=== PATIENT | female | born 1990 ===

== ENCOUNTER 2016-09-20 14:26 | Emergency (ER) | payer OTHER ==
--- NOTE | 2016-09-20 17:22 | DIAGNOSTIC IMAGING REPORT ---
PROCEDURE: CT ABD/PELVIS WITH CONTRAST CLINICAL INDICATION: Mid abdominal pain, initial encounter TECHNIQUE: 95 ml of Isovue 300 were injected intravenously and axial images were obtained of the entire abdomen and pelvis with sagittal and coronal reformations. COMPARISON: None. FINDINGS: ABDOMEN: Lung base are clear. Normal heart size. Multiple gallstones but no inflammatory changes. Minor right hepatic lobe ductal dilation . Liver, pancreas, spleen, adrenal glands, kidneys and abdominal aorta are normal. Normal appendix. Nonspecific bowel gas pattern. PELVIS: 2 cm involuting left ovarian cyst with minimal free fluid. Uterus and bladder are normal. Bones are unremarkable pill IMPRESSION: 1. Cholelithiasis 2. 2 cm involuting left ovarian cyst with minimal free fluid 3. Results discussed with Dr. Milligan All CT scans at this facility use dose modulation, iterative reconstruction, and/or weight-based dosing when appropriate to reduce radiation dose to as low as reasonably achievable.
--- NOTE | 2016-09-20 19:03 | ED NURSING NOTES ---
Clinical Report - Nurses [facility] [address] [place] [address] 09/20/2016 14:28 Patient: JAY KNIGHT TRIAGE Triage time 14:33 Sep 20 2016. Acuity: LEVEL 3. Chief Complaint: CHEST PAIN. 14:37 09/20/16. Alert. No acute distress. SEPSIS SCREEN: Sepsis Screen. Negative (no infection suspected/documented). --14:37 Melody Martinez 14:37 09/20/16. BP: 149/97. HR: 93. RR: 20. O2 saturation: 100%. Temp: 98.4 F. Pain level now 05/20. --14:37 Melody Martinez. Weight: 68 kg stated. Height/Length: 62 inches Per Patient. BMI: 27.4. --14:35 Melody Martinez. Medications None. --14:35 Melody Martinez. Medication/allergy information source: the patient. --14:37 Melody Martinez. Allergies None. --14:35 Melody Martinez. History Arrived by private vehicle. Historian: patient. Accompanied by family and sister. No primary care physician. Onset. (This morning). ( Patient reports pain in the center of her chest and upper abd that started this AM. Reports that she has vomited 4 times today. Denies diarrhea, has been constipated for "a few" days. Nothing makes the pain better. Pt reports that the only heart/stomach issue she has had before was food poisoning.). She has had difficulty breathing, nausea and vomiting. No sweating episodes, fever or cough. 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 PAST MEDICAL HX: Immunizations: status is unknown. Denies current . SOCIAL HX: Never smoker. Occasional alcohol use. History of drug use: marijuana. FALL RISK ASSESSMENT: Fall risk assessment completed. No fall risk identified. NUTRITIONAL RISK ASSESSMENT: The nutritional risk assessment revealed no deficiencies. FUNCTIONAL ASSESSMENT: Functional assessment: no impairments noted. LEARNING NEEDS ASSESSMENT: The learning needs assessment revealed no barriers. SKIN INTEGRITY ASSESSMENT: Skin integrity risk assessment completed. No skin integrity risk identified. --14:37 Melody Martinez. Assessment The patient states feels the same. --14:37 Melody Martinez. Interventions ID band on patient. --14:37 Melody Martinez. PHYSICAL ASSESSMENT 14:38 09/20/16. Ambulatory to room. Patient gowned. GENERAL / NEURO / PSYCH: Alert. Oriented X 4. Appears in no acute distress. HEENT: Mucous membranes are pink. RESPIRATORY: Respirations not labored. Chest wall tenderness. CVS: Cardiac rhythm: sinus tachycardia. Pulses within normal limits. Capillary refill less than 2 seconds. GI / : Abdomen soft. Abdominal tenderness in the epigastric area. EXTREMITIES: No lower extremity edema. SKIN: Skin is warm and dry. Normal skin turgor. Skin is non-tender. --14:38 Melody Martinez. NURSING PROGRESS NOTES 14:38 09/20/16. The plan of care for this patient has been created. front desk monitor, pulse oximeter and NIBP monitor placed on patient; front desk monitor- Lead II and V5; monitor alarms on. Patient gowned. Head of bed elevated. Reassurance given. Two patient identifiers checked. Call light placed in reach. Side rails up x 1. Bed placed in lowest position. Brakes of bed on. Patient ready for evaluation- chart flagged and ED physician and PA notified. --14:38 Melody Martinez 14:42 09/20/2016 One (1) unsuccessful IV access attempt including the right forearm. Applied pressure dressing. --14:52 Melody Martinez 14:59 09/20/2016 Site #1 started via IV in the right hand with an 22g angiocath, with aseptic technique and good blood return; one attempt. Saline lock flushed with 10 mL saline (Unable to draw blood.). --15:04 Azeb Sherman R.N. 15:05 09/20/2016 Zofran (Ondansetron HCl) IVP 4 mg given over 1 minute(s) via site #1. Allergies verified and confirmed 5 rights. IV patency established. IV site checked: no pain, redness, or swelling. IV flushed thoroughly pre- and post-medication administration. IVP given by RN. --15:05 Melody Martinez 15:09/20/2016 Started bag #1 1000 mL IV Fluids IV NS (Saline); at 1000 mL/hr over 1 hour(s) via site #1 via IV pump. Allergies verified and confirmed 5 rights. IV patency established. IV site checked: no pain, redness, or swelling. IV flushed thoroughly pre- and post-medication administration. --15:09 Melody Martinez 15:09/20/2016 GI COCKTAIL RED (Magnesium-Aluminum) PO Oral Suspension 35 mL given. Allergies verified and confirmed 5 rights. --15:26 Melody Martinez 15:09/20/16. ( Lab in room to draw blood.). --15:22 Melody Martinez 15:30 09/20/16. ( Pt ambulated to bathroom, tolerated well.). --15:30 Melody Martinez 15:33 09/20/16. front desk monitor, pulse oximeter and NIBP monitor placed on patient; front desk monitor- Lead II and V5; monitor alarms on. Patient ID band checked for patient name and birthdate: patient confirmed. Instructions provided to collect clean catch urine and patient verbalized understanding. Clean catch urine collected with return of yellow-colored clear urine; sample sent to lab. Specimen labeled in the presence of the patient. --15:33 Melody Martinez 15:33 09/20/16. BP: 154/91. HR: 111. RR: 22. O2 saturation: 97%. Pain level now: 05/20. --15:35 Melody Martinez 15:36 09/20/2016 Demerol (Meperidine HCl) IVP 50 mg given over 1 minute(s) via site #1. Allergies verified and confirmed 5 rights. IV patency established. IV site checked: no pain, redness, or swelling. IV flushed thoroughly pre- and post-medication administration. IVP given by RN. --15:36 Melody Martinez 16:13 09/20/16. Pain level now 01/18. --16:13 Melody Martinez 16:13 09/20/16. Reassessment after medication administered. She is resting quietly. Overall patient status is improved- she states feels better. --16:13 Melody Martinez Patient transported to radiology by stretcher with tech. (16:36 Sep 20 2016). --16:43 Doritaann mariemaritaMelody 16:59 09/20/16. BP: 148/95. HR: 91. RR: 20. O2 saturation: 100% on room air. Pain level now: 03/20. --16:59 Melody Martinez 16:15 09/20/2016 IV Fluids IV NS Discontinued: bag #1 infused. Total amount infused: 1000 mL. --17:00 Melody Martinez 17:04 09/20/16. Care transferred and report given (BRIEN Bowie). --17:04 Melody Martinez 17:36 09/20/2016 Toradol IVP 30 mg given over 1 minute(s) via site #1. Allergies verified and confirmed 5 rights. IV patency established. IV site checked: no pain, redness, or swelling. IV flushed thoroughly pre- and post-medication administration. IVP given by RN. --17:41 Azeb Sherman R.N. 17:49 09/20/16. BP: 140/74. HR: 94. RR: 13. O2 saturation: 99%. Pain level now: 03/20. --17:50 Azeb Sherman R.N. 19:20 09/20/2016 Site #1 removed upon discharge. Catheter intact. Bandaid applied. --20:30 Azeb Sherman R.N. DISPOSITION / DISCHARGE 19:20. Condition at departure: improved. No learning barriers present. Reviewed medication(s) side effects, precautions, dosing and course information. Prescription(s) given to the patient. Patient verbalized understanding. Written instructions provided in Turkish. The patient was discharged home and accompanied by spouse. She left the Emergency Department ambulatory and via private vehicle. Spouse driving. Medication list reviewed and validated. --20:31 Azeb Sherman R.N. 19:19 09/20/16. BP: 136/72. HR: 88. RR: 20. O2 saturation: 98%. Temp: deferred. Pain level now: 11/18. 17:49 09/20/16. BP: 140/74. HR: 94. RR: 13. O2 saturation: 99%. Pain level now: 03/20. 16:59 09/20/16. BP: 148/95. HR: 91. RR: 20. O2 saturation: 100% on room air. Pain level now: 03/20. 16:11 09/20/16. Pain level now 01/18. 15:33 09/20/16. BP: 154/91. HR: 111. RR: 22. O2 saturation: 97%. Pain level now: 05/20. 14:33 09/20/16. BP: 149/97. HR: 93. RR: 20. O2 saturation: 100%. Temp: 98.4 F. Pain level now 05/20. --20:31 Azeb Sherman R.N. Locked/Released at 09/20/2016 20:34 by Azeb Sherman R.N.
--- NOTE | 2016-09-20 19:03 | ED ORDER SUMMARY ---
..... Patient: JAY KNIGHT OrderSheet [facility] VisitID: [id number] [address] [place] [address] 25y, F Registration Date/Time: 09/20/2016 ORDER SHEET Weight: 68.0 kg (stated) Allergies: None GENERAL ORDERS: CBC w Diff Urgent (15:02 09/20/2016 Lonnie Gillis) (Ack 15:13 LTapper) (15:26 ASchmuck) CMP Urgent (15:09/20/2016 Lonnie Gillis) (Ack 15:13 LTapper) (15:26 ASchmuck) UA-Culture if indicated Urgent (15:09/20/2016 Lonnie Gillis) (Ack 15:13 LTapper) (15:36 ASchmuck) Urine Urgent (15:09/20/2016 Lonnie Gillis) (Ack 15:13 LTapper) (15:36 ASchmuck) Amylase Urgent (15:02 09/20/2016 Lonnie Gillis) (Ack 15:13 LTapper) (15:26 ASchmuck) Lipase Urgent (15:02 09/20/2016 Lonnie Gillis) (Ack 15:13 LTapper) (15:26 ASchmuck) CT Abd/Pel w Cont (No) (11/0.8) Urgent (16:17 09/20/2016 Lonnie Gillis) (Ack 16:22 LTapper) (17:00 ASchmuck) US Abdomen Limited (Yes) Urgent (17:27 09/20/2016 Lonnie Gillis) (Ack 17:32 LTapper) (20:30 SRoberts R.N.) MEDICATION ORDERS: GI Cocktail RED PO 35 mL with Lidocaine Viscous Mouth/Throat 10 mL, Diphenhydramine Oral 10 mL, Maalox Plus Oral 15 mL (NOW) (15:02 09/20/2016 Lonnie Gillis) (Ack 15:05 ASchmuck) (15:26 ASchmuck) IV FLUIDS: IV NS : initial bolus none -, then 1000 mL/hr for X1 (NOW) (15:09/20/2016 Lonnie Gillis) (Ack 15:05 ASchmuck) (15:09 ASchmuck) Zofran IV 4 mg (NOW) (15:02 09/20/2016 Lonnie Gillis) (15:05 ASchmuck) Demerol IV 50 mg (HIGH ALERT MEDICATION, NOW) (15:29 09/20/2016 Lonnie Gillis) (15:36 ASchmuck) Toradol IV 30 mg (NOW) (17:27 09/20/2016 Lonnie Gillis) (Ack 17:31 SRoberts R.N.) (17:41 SRoberts R.N.) ORDER SHEET NOTES: [Electronically signed by Bc Milligan Dr. (19:09 09/20/2016)] [Electronically signed by Azeb Sherman R.N. (20:34 09/20/2016)] [Electronically locked/signed by Azeb Sherman R.N. (20:34 09/20/2016)]
--- NOTE | 2016-09-20 19:03 | ED NURSING NOTES ---
Clinical Report - Nurses [facility] [address] [place] [address] 09/20/2016 14:28 Patient: JAY KNIGHT TRIAGE Triage time 14:33 Sep 20 2016. Acuity: LEVEL 3. Chief Complaint: CHEST PAIN. 14:37 09/20/16. Alert. No acute distress. SEPSIS SCREEN: Sepsis Screen. Negative (no infection suspected/documented). --14:37 Melody Martinez 14:37 09/20/16. BP: 149/97. HR: 93. RR: 20. O2 saturation: 100%. Temp: 98.4 F. Pain level now 05/20. --14:37 Melody Martinez. Weight: 68 kg stated. Height/Length: 62 inches Per Patient. BMI: 27.4. --14:35 Melody Martinez. Medications None. --14:35 Melody Martinez. Medication/allergy information source: the patient. --14:37 Melody Martinez. Allergies None. --14:35 Melody Martinez. History Arrived by private vehicle. Historian: patient. Accompanied by family and sister. No primary care physician. Onset. (This morning). ( Patient reports pain in the center of her chest and upper abd that started this AM. Reports that she has vomited 4 times today. Denies diarrhea, has been constipated for "a few" days. Nothing makes the pain better. Pt reports that the only heart/stomach issue she has had before was food poisoning.). She has had difficulty breathing, nausea and vomiting. No sweating episodes, fever or cough. 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 PAST MEDICAL HX: Immunizations: status is unknown. Denies current . SOCIAL HX: Never smoker. Occasional alcohol use. History of drug use: marijuana. FALL RISK ASSESSMENT: Fall risk assessment completed. No fall risk identified. NUTRITIONAL RISK ASSESSMENT: The nutritional risk assessment revealed no deficiencies. FUNCTIONAL ASSESSMENT: Functional assessment: no impairments noted. LEARNING NEEDS ASSESSMENT: The learning needs assessment revealed no barriers. SKIN INTEGRITY ASSESSMENT: Skin integrity risk assessment completed. No skin integrity risk identified. --14:37 Melody Martinez. Assessment The patient states feels the same. --14:37 Melody Martinez. Interventions ID band on patient. --14:37 Melody Martinez. PHYSICAL ASSESSMENT 14:38 09/20/16. Ambulatory to room. Patient gowned. GENERAL / NEURO / PSYCH: Alert. Oriented X 4. Appears in no acute distress. HEENT: Mucous membranes are pink. RESPIRATORY: Respirations not labored. Chest wall tenderness. CVS: Cardiac rhythm: sinus tachycardia. Pulses within normal limits. Capillary refill less than 2 seconds. GI / : Abdomen soft. Abdominal tenderness in the epigastric area. EXTREMITIES: No lower extremity edema. SKIN: Skin is warm and dry. Normal skin turgor. Skin is non-tender. --14:38 Melody Martinez. NURSING PROGRESS NOTES 14:38 09/20/16. The plan of care for this patient has been created. awake overnight monitor, pulse oximeter and NIBP monitor placed on patient; campus monitor- Lead II and V5; monitor alarms on. Patient gowned. Head of bed elevated. Reassurance given. Two patient identifiers checked. Call light placed in reach. Side rails up x 1. Bed placed in lowest position. Brakes of bed on. Patient ready for evaluation- chart flagged and ED physician and PA notified. --14:38 Melody Martinez 14:42 09/20/2016 One (1) unsuccessful IV access attempt including the right forearm. Applied pressure dressing. --14:52 Melody Martinez 14:59 09/20/2016 Site #1 started via IV in the right hand with an 22g angiocath, with aseptic technique and good blood return; one attempt. Saline lock flushed with 10 mL saline (Unable to draw blood.). --15:04 Azeb Sherman R.N. 15:05 09/20/2016 Zofran (Ondansetron HCl) IVP 4 mg given over 1 minute(s) via site #1. Allergies verified and confirmed 5 rights. IV patency established. IV site checked: no pain, redness, or swelling. IV flushed thoroughly pre- and post-medication administration. IVP given by RN. --15:05 Melody Martinez 15:09/20/2016 Started bag #1 1000 mL IV Fluids IV NS (Saline); at 1000 mL/hr over 1 hour(s) via site #1 via IV pump. Allergies verified and confirmed 5 rights. IV patency established. IV site checked: no pain, redness, or swelling. IV flushed thoroughly pre- and post-medication administration. --15:09 Melody Martinez 15:09/20/2016 GI COCKTAIL RED (Magnesium-Aluminum) PO Oral Suspension 35 mL given. Allergies verified and confirmed 5 rights. --15:26 Melody Martinez 15:09/20/16. ( Lab in room to draw blood.). --15:22 Melody Martinez 15:30 09/20/16. ( Pt ambulated to bathroom, tolerated well.). --15:30 Melody Martinez 15:33 09/20/16. awake overnight monitor, pulse oximeter and NIBP monitor placed on patient; campus monitor- Lead II and V5; monitor alarms on. Patient ID band checked for patient name and birthdate: patient confirmed. Instructions provided to collect clean catch urine and patient verbalized understanding. Clean catch urine collected with return of yellow-colored clear urine; sample sent to lab. Specimen labeled in the presence of the patient. --15:33 Melody Martinez 15:33 09/20/16. BP: 154/91. HR: 111. RR: 22. O2 saturation: 97%. Pain level now: 05/20. --15:35 Melody Martinez 15:36 09/20/2016 Demerol (Meperidine HCl) IVP 50 mg given over 1 minute(s) via site #1. Allergies verified and confirmed 5 rights. IV patency established. IV site checked: no pain, redness, or swelling. IV flushed thoroughly pre- and post-medication administration. IVP given by RN. --15:36 Melody Martinez 16:13 09/20/16. Pain level now 01/18. --16:13 Melody Martinez 16:13 09/20/16. Reassessment after medication administered. She is resting quietly. Overall patient status is improved- she states feels better. --16:13 Melody Martinez Patient transported to radiology by stretcher with tech. (16:36 Sep 20 2016). --16:43 Doritaann mariemaritaMelody 16:59 09/20/16. BP: 148/95. HR: 91. RR: 20. O2 saturation: 100% on room air. Pain level now: 03/20. --16:59 Melody Martinez 16:15 09/20/2016 IV Fluids IV NS Discontinued: bag #1 infused. Total amount infused: 1000 mL. --17:00 Melody Martinez 17:04 09/20/16. Care transferred and report given (BRIEN Bowie). --17:04 Melody Martinez 17:36 09/20/2016 Toradol IVP 30 mg given over 1 minute(s) via site #1. Allergies verified and confirmed 5 rights. IV patency established. IV site checked: no pain, redness, or swelling. IV flushed thoroughly pre- and post-medication administration. IVP given by RN. --17:41 Azeb Sherman R.N. 17:49 09/20/16. BP: 140/74. HR: 94. RR: 13. O2 saturation: 99%. Pain level now: 03/20. --17:50 Azeb Sherman R.N. 19:20 09/20/2016 Site #1 removed upon discharge. Catheter intact. Bandaid applied. --20:30 Azeb Sherman R.N. DISPOSITION / DISCHARGE 19:20. Condition at departure: improved. No learning barriers present. Reviewed medication(s) side effects, precautions, dosing and course information. Prescription(s) given to the patient. Patient verbalized understanding. Written instructions provided in Syrian. The patient was discharged home and accompanied by spouse. She left the Emergency Department ambulatory and via private vehicle. Spouse driving. Medication list reviewed and validated. --20:31 Azeb Sherman R.N. 19:19 09/20/16. BP: 136/72. HR: 88. RR: 20. O2 saturation: 98%. Temp: deferred. Pain level now: 11/18. 17:49 09/20/16. BP: 140/74. HR: 94. RR: 13. O2 saturation: 99%. Pain level now: 03/20. 16:59 09/20/16. BP: 148/95. HR: 91. RR: 20. O2 saturation: 100% on room air. Pain level now: 03/20. 16:11 09/20/16. Pain level now 01/18. 15:33 09/20/16. BP: 154/91. HR: 111. RR: 22. O2 saturation: 97%. Pain level now: 05/20. 14:33 09/20/16. BP: 149/97. HR: 93. RR: 20. O2 saturation: 100%. Temp: 98.4 F. Pain level now 05/20. --20:31 Azeb Sherman R.N. Locked/Released at 09/20/2016 20:34 by Azeb Sherman R.N.
--- NOTE | 2016-09-20 19:03 | ED CLINICAL REPORT ---
Clinical Report - Physicians/Mid Levels [facility] [address] [place] [address] 09/20/2016 14:28 Patient: JAY KNIGHT Time Seen: 14:36; initial patient contact. Arrived- By private vehicle. Historian- patient. HISTORY OF PRESENT ILLNESS Chief Complaint: ABDOMINAL PAIN. This started today and is still present. At its maximum, severity described as moderate. When seen in the E.D., severity described as moderate. Modifying factors. Not worsened by anything. Not relieved by anything. It is described as "pain". No radiation. It is described as located in the epigastric area and in the upper abdomen. The patient has had nausea, loss of appetite and vomiting. No diarrhea. Similar symptoms previously: None. Recent medical care: Not recently seen/assessed. REVIEW OF SYSTEMS No constipation, pain with urination, urinary frequency, fever or chills. All systems otherwise negative, except as recorded above. PAST HISTORY Negative. Surgeries: No history of previous surgery. SOCIAL HISTORY Never smoker. History of drug use: marijuana. ADDITIONAL NOTES The nursing notes have been reviewed with agreement regarding the chief complaint, PMH and patient medications and allergies. PHYSICAL EXAM Vital Signs: 09/20/2016 14:37 BP: 149/97. HR: 93. RR: 20. O2 saturation: 100%. Temp: 98.4 F. Have been reviewed. Hypertensive. Heart rate normal. Respiratory rate normal. Temperature normal. Oxygen saturation normal. Appearance: Alert. Oriented X3. Appears to be in pain. Eyes: Eyes normal inspection. No scleral icterus. ENT: Dry mucous membranes present. CVS: Normal heart rate and rhythm. Heart sounds normal. Respiratory: No respiratory distress. Breath sounds normal. Abdomen: Soft. Moderate tenderness in the upper abdomen and epigastric area with guarding present. No rebound tenderness or Randle's sign present. Bowel sounds normal. No mass. Back: Normal inspection. No CVA tenderness. Skin: Skin warm and dry. Normal skin color. No rash. Neuro: Oriented X 3. LABS, X-RAYS, AND EKG Abdominal CT: 1. Cholelithiasis 2. 2 cm involuting left ovarian cyst with minimal free fluid. Study type: abdomen and pelvis. Abdominal CT performed with IV contrast. Prior studies were not available for comparison. The study was interpreted by the radiologist and discussed with the radiologist. Laboratory Tests: UA-Culture if indicated: (STUART: 09/20/2016 15:33) ( [facility] [place] 09/20/2016 15:57) Final results Test Result Flag Units (Reference) URINE COLOR STRAW URINE APPEARANCE CLEAR URINE GLUCOSE NEGATIVE (NEGATIVE) URINE BILIRUBIN NEGATIVE (NEGATIVE) URINE KETONE 1+ (NEGATIVE) URINE SPECIFIC GRAVITY 1.015 (1.010-1.030) URINE PH 8.5 H (5.0-8.0) URINE PROTEIN NEGATIVE (NEGATIVE) URINE UROBILINOGEN 0.2 EU/dL (0.2-1.0) URINE NITRITE NEGATIVE (NEGATIVE) URINE BLOOD 1+ (NEGATIVE) URINE LEUK ESTERASE NEGATIVE (NEGATIVE) URINE RBC 0-1 rbc/hpf (0-1) URINE WBC 1-3 wbc/hpf (0-1) URINE EPITHELIAL CELLS 1-3 EPI/hpf (0-5) URINE BACTERIA MODERATE (2+ TO 3+) (NONE SEEN) URINE COMMENT CULTURE INDICATED URINE CULTURES ARE SET-UP BASED ON THE FOLLOWING CRITERIA:POSITIVE NITRITEPOSITIVE LEUKOCYTE ESTERASEGREATER THAN 10 WHITE BLOOD CELLSMODERATE (2+) OR GREATER BACTERIA Urine: (STUART: 09/20/2016 15:33) ( [facility] [place] 09/20/2016 15:50) Final results Test Result Flag Units (Reference) URINE NEGATIVE CBC w Diff: (STUART: 09/20/2016 15:25) ( [facility] 09/20/2016 15:33) Final results Test Result Flag Units (Reference) WHITE BLOOD COUNT 14.5 H K/uL (4.5-11.5) RED BLOOD COUNT 4.20 M/uL (4.00-5.20) HEMOGLOBIN 12.1 gm/dL (12.0-16.0) HEMATOCRIT 37.4 % (36.0-46.0) MEAN CELL VOLUME 89 fL (80-100) MEAN CORPUSCULAR HGB 29 pg (26-34) MEAN CORPUSCULAR HGB CONC 33 g/dL (31-37) RED CELL DISTRIBUTION WIDTH 14.6 % (11.6-14.8) PLATELET COUNT 466 H K/uL (150-400) NEUTROPHIL % 89.7 H % (50-75) LYMPH % 8.4 L % (25-40) MONO % 1.8 L % (3-14) EOSINOPHIL % 0 % (0-4) BASOPHIL % 0.1 % (0-2) CMP: (STUART: 09/20/2016 15:25) ( MsgRcvd 09/20/2016 15:57) Final results Test Result Flag Units (Reference) GLUCOSE 109 mg/dL (70-110) BUN 11 mg/dL (7-18) CREATININE 0.8 mg/dL (0.6-1.3) Estimated GFR >60 mL/min Estimated GFR- >60 mL/min Note: Persistent reduction over 3 months in eGFR<60 mL/min/1.73 m2 defines CKD. Patients with eGFR values>=60 mL/min/1.73 m2 may also have CKD if evidence ofpersistent proteinuria. Additional information may be foundat www.[email or web address].org. SODIUM 138 mmol/L (136-145) POTASSIUM 4.1 mmol/L (3.5-5.1) CHLORIDE 101 mmol/L (98-107) CARBON DIOXIDE 21 mmol/L (21-32) CALCIUM 8.8 mg/dL (8.5-10.1) TOTAL PROTEIN 8.3 H g/dL (6.4-8.2) ALBUMIN 4.2 g/dL (3.3-5.0) BILIRUBIN, TOTAL 0.3 mg/dL (0.0-1.0) ALKALINE PHOSPHATASE 67 U/L (46-116) AST (SGOT) 20 U/L (15-37) ALT (SGPT) 37 U/L (12-78) LIPASE 125 U/L (73-393) AMYLASE 52 U/L (25-115) . PROGRESS AND PROCEDURES Disposition: Discharged home in good and improved condition. Condition: good. CLINICAL IMPRESSION Biliary colic with multiple gallstones. No cholecystitis. INSTRUCTIONS Avoid fatty and fried/greasy foods. Prescription Medications: Hydrocodone/APAP 5mg / 325mg: take 1 orally every 6 hours as needed for pain. Dispense fifteen (15). No refill. Zofran (orally disintegrating tablets) 4 mg: take 1 orally every 6 hours as needed for nausea and vomiting. Dispense ten (10). No refill. Substitution is permissible. Follow-up with: Bruce Browne MD, General Surgeon, , [facility], [address] [place] [address] Follow up in about three days. Call for an appointment. (Electronically signed by Bc Milligan Dr. 09/20/2016 19:09)
--- NOTE | 2016-09-20 19:03 | ED ORDER SUMMARY ---
..... Patient: JAY KNIGHT OrderSheet [facility] VisitID: [id number] [address] [place] [address] 25y, F Registration Date/Time: 09/20/2016 ORDER SHEET Weight: 68.0 kg (stated) Allergies: None GENERAL ORDERS: CBC w Diff Urgent (15:02 09/20/2016 Lonnie Gillis) (Ack 15:13 LTapper) (15:26 ASchmuck) CMP Urgent (15:09/20/2016 Lonnie Gillis) (Ack 15:13 LTapper) (15:26 ASchmuck) UA-Culture if indicated Urgent (15:09/20/2016 Lonnie Gillis) (Ack 15:13 LTapper) (15:36 ASchmuck) Urine Urgent (15:09/20/2016 Lonnie Gillis) (Ack 15:13 LTapper) (15:36 ASchmuck) Amylase Urgent (15:02 09/20/2016 Lonnie Gillis) (Ack 15:13 LTapper) (15:26 ASchmuck) Lipase Urgent (15:02 09/20/2016 Lonnie Gillis) (Ack 15:13 LTapper) (15:26 ASchmuck) CT Abd/Pel w Cont (No) (11/0.8) Urgent (16:17 09/20/2016 Lonnie Gillis) (Ack 16:22 LTapper) (17:00 ASchmuck) US Abdomen Limited (Yes) Urgent (17:27 09/20/2016 Lonnie Gillis) (Ack 17:32 LTapper) (20:30 SRoberts R.N.) MEDICATION ORDERS: GI Cocktail RED PO 35 mL with Lidocaine Viscous Mouth/Throat 10 mL, Diphenhydramine Oral 10 mL, Maalox Plus Oral 15 mL (NOW) (15:02 09/20/2016 Lonnie Gillis) (Ack 15:05 ASchmuck) (15:26 ASchmuck) IV FLUIDS: IV NS : initial bolus none -, then 1000 mL/hr for X1 (NOW) (15:09/20/2016 Lonnie Gillis) (Ack 15:05 ASchmuck) (15:09 ASchmuck) Zofran IV 4 mg (NOW) (15:02 09/20/2016 Lonnie Gillis) (15:05 ASchmuck) Demerol IV 50 mg (HIGH ALERT MEDICATION, NOW) (15:29 09/20/2016 Lonnie Gillis) (15:36 ASchmuck) Toradol IV 30 mg (NOW) (17:27 09/20/2016 Lonnie Gillis) (Ack 17:31 SRoberts R.N.) (17:41 SRoberts R.N.) ORDER SHEET NOTES: [Electronically signed by Bc Milligan Dr. (19:09 09/20/2016)] [Electronically signed by Azeb Sherman R.N. (20:34 09/20/2016)] [Electronically locked/signed by Azeb Sherman R.N. (20:34 09/20/2016)]
--- NOTE | 2016-09-20 19:03 | ED CLINICAL REPORT ---
Clinical Report - Physicians/Mid Levels [facility] [address] [place] [address] 09/20/2016 14:28 Patient: JAY KNIGHT Time Seen: 14:36; initial patient contact. Arrived- By private vehicle. Historian- patient. HISTORY OF PRESENT ILLNESS Chief Complaint: ABDOMINAL PAIN. This started today and is still present. At its maximum, severity described as moderate. When seen in the E.D., severity described as moderate. Modifying factors. Not worsened by anything. Not relieved by anything. It is described as "pain". No radiation. It is described as located in the epigastric area and in the upper abdomen. The patient has had nausea, loss of appetite and vomiting. No diarrhea. Similar symptoms previously: None. Recent medical care: Not recently seen/assessed. REVIEW OF SYSTEMS No constipation, pain with urination, urinary frequency, fever or chills. All systems otherwise negative, except as recorded above. PAST HISTORY Negative. Surgeries: No history of previous surgery. SOCIAL HISTORY Never smoker. History of drug use: marijuana. ADDITIONAL NOTES The nursing notes have been reviewed with agreement regarding the chief complaint, PMH and patient medications and allergies. PHYSICAL EXAM Vital Signs: 09/20/2016 14:37 BP: 149/97. HR: 93. RR: 20. O2 saturation: 100%. Temp: 98.4 F. Have been reviewed. Hypertensive. Heart rate normal. Respiratory rate normal. Temperature normal. Oxygen saturation normal. Appearance: Alert. Oriented X3. Appears to be in pain. Eyes: Eyes normal inspection. No scleral icterus. ENT: Dry mucous membranes present. CVS: Normal heart rate and rhythm. Heart sounds normal. Respiratory: No respiratory distress. Breath sounds normal. Abdomen: Soft. Moderate tenderness in the upper abdomen and epigastric area with guarding present. No rebound tenderness or Randle's sign present. Bowel sounds normal. No mass. Back: Normal inspection. No CVA tenderness. Skin: Skin warm and dry. Normal skin color. No rash. Neuro: Oriented X 3. LABS, X-RAYS, AND EKG Abdominal CT: 1. Cholelithiasis 2. 2 cm involuting left ovarian cyst with minimal free fluid. Study type: abdomen and pelvis. Abdominal CT performed with IV contrast. Prior studies were not available for comparison. The study was interpreted by the radiologist and discussed with the radiologist. Laboratory Tests: UA-Culture if indicated: (STUART: 09/20/2016 15:33) ( [facility] [place] 09/20/2016 15:57) Final results Test Result Flag Units (Reference) URINE COLOR STRAW URINE APPEARANCE CLEAR URINE GLUCOSE NEGATIVE (NEGATIVE) URINE BILIRUBIN NEGATIVE (NEGATIVE) URINE KETONE 1+ (NEGATIVE) URINE SPECIFIC GRAVITY 1.015 (1.010-1.030) URINE PH 8.5 H (5.0-8.0) URINE PROTEIN NEGATIVE (NEGATIVE) URINE UROBILINOGEN 0.2 EU/dL (0.2-1.0) URINE NITRITE NEGATIVE (NEGATIVE) URINE BLOOD 1+ (NEGATIVE) URINE LEUK ESTERASE NEGATIVE (NEGATIVE) URINE RBC 0-1 rbc/hpf (0-1) URINE WBC 1-3 wbc/hpf (0-1) URINE EPITHELIAL CELLS 1-3 EPI/hpf (0-5) URINE BACTERIA MODERATE (2+ TO 3+) (NONE SEEN) URINE COMMENT CULTURE INDICATED URINE CULTURES ARE SET-UP BASED ON THE FOLLOWING CRITERIA:POSITIVE NITRITEPOSITIVE LEUKOCYTE ESTERASEGREATER THAN 10 WHITE BLOOD CELLSMODERATE (2+) OR GREATER BACTERIA Urine: (STUART: 09/20/2016 15:33) ( [facility] [place] 09/20/2016 15:50) Final results Test Result Flag Units (Reference) URINE NEGATIVE CBC w Diff: (STUART: 09/20/2016 15:25) ( [facility] [place] 09/20/2016 15:33) Final results Test Result Flag Units (Reference) WHITE BLOOD COUNT 14.5 H K/uL (4.5-11.5) RED BLOOD COUNT 4.20 M/uL (4.00-5.20) HEMOGLOBIN 12.1 gm/dL (12.0-16.0) HEMATOCRIT 37.4 % (36.0-46.0) MEAN CELL VOLUME 89 fL (80-100) MEAN CORPUSCULAR HGB 29 pg (26-34) MEAN CORPUSCULAR HGB CONC 33 g/dL (31-37) RED CELL DISTRIBUTION WIDTH 14.6 % (11.6-14.8) PLATELET COUNT 466 H K/uL (150-400) NEUTROPHIL % 89.7 H % (50-75) LYMPH % 8.4 L % (25-40) MONO % 1.8 L % (3-14) EOSINOPHIL % 0 % (0-4) BASOPHIL % 0.1 % (0-2) CMP: (STUART: 09/20/2016 15:25) ( MsgRcvd 09/20/2016 15:57) Final results Test Result Flag Units (Reference) GLUCOSE 109 mg/dL (70-110) BUN 11 mg/dL (7-18) CREATININE 0.8 mg/dL (0.6-1.3) Estimated GFR >60 mL/min Estimated GFR- >60 mL/min Note: Persistent reduction over 3 months in eGFR<60 mL/min/1.73 m2 defines CKD. Patients with eGFR values>=60 mL/min/1.73 m2 may also have CKD if evidence ofpersistent proteinuria. Additional information may be foundat www.[email or web address].org. SODIUM 138 mmol/L (136-145) POTASSIUM 4.1 mmol/L (3.5-5.1) CHLORIDE 101 mmol/L (98-107) CARBON DIOXIDE 21 mmol/L (21-32) CALCIUM 8.8 mg/dL (8.5-10.1) TOTAL PROTEIN 8.3 H g/dL (6.4-8.2) ALBUMIN 4.2 g/dL (3.3-5.0) BILIRUBIN, TOTAL 0.3 mg/dL (0.0-1.0) ALKALINE PHOSPHATASE 67 U/L (46-116) AST (SGOT) 20 U/L (15-37) ALT (SGPT) 37 U/L (12-78) LIPASE 125 U/L (73-393) AMYLASE 52 U/L (25-115) . PROGRESS AND PROCEDURES Disposition: Discharged home in good and improved condition. Condition: good. CLINICAL IMPRESSION Biliary colic with multiple gallstones. No cholecystitis. INSTRUCTIONS Avoid fatty and fried/greasy foods. Prescription Medications: Hydrocodone/APAP 5mg / 325mg: take 1 orally every 6 hours as needed for pain. Dispense fifteen (15). No refill. Zofran (orally disintegrating tablets) 4 mg: take 1 orally every 6 hours as needed for nausea and vomiting. Dispense ten (10). No refill. Substitution is permissible. Follow-up with: Bruce Browne MD, General Surgeon, , [facility], [address] [place] [address] Follow up in about three days. Call for an appointment. (Electronically signed by Bc Milligan Dr. 09/20/2016 19:09)
--- NOTE | 2016-09-20 20:34 | ED MED RECONCILIATION SUMMARY ---
Patient: JAY KNIGHT Medication Reconciliation Report Located Within [facility] VisitID: [id number] [address] [place] [address] 25y, F Registration Date/Time: 09/20/2016 Weight: 68.0 kg Height/Length: 62 in. BMI: 27.4 ALLERGIES: None The patient's Home Medications are listed below: NONE. The source(s) of the original Home Medication information: patient The following Medications were given to the patient in the Emergency Department: Zofran [IVP] IVP 4 mg, administered: 09/20/2016 3:05:00 PM IV NS IV Fluids bolus 0, then 1000 mL/hr, administered: 09/20/2016 3:09:00 PM GI COCKTAIL RED [PO] PO 35 mL, administered: 09/20/2016 3:21:00 PM Demerol [IVP] IVP 50 mg, administered: 09/20/2016 3:36:00 PM Toradol [IVP] IVP 30 mg, administered: 09/20/2016 5:36:00 PM The following Medications were prescribed to the patient: Hydrocodone/APAP 5mg / 325mg: take 1 orally every 6 hours as needed for pain. Dispense fifteen (15). No refill. -- Bc Milligan Dr. Zofran (orally disintegrating tablets) 4 mg: take 1 orally every 6 hours as needed for nausea and vomiting. Dispense ten (10). No refill. Substitution is permissible. -- Bc Milligan Dr.
--- NOTE | 2016-09-20 20:34 | ED MAR SUMMARY ---
..... Medication Administration Record [facility] [address] [place] [address] Patient: JAY KNIGHT Visit ID: [id number] 25y, F Weight: 68.0 kg Height/Length: 62 in BMI: 27.4 ALLERGIES: None Given 15:05 09/20/2016 Melody Martinez, Medication Administered: ZOFRAN [IVP] (ONDANSETRON HCL), Dose: 4 mg IVP over 1 minute(s), Site: #1 right hand. Medication Ordered: Zofran IV 4 mg (NOW). Start 15:09 09/20/2016 Melody Martinez,, Stop 16:15 09/20/2016 Melody Martinez, Medication Administered: IV NS (SALINE), Dose: IV Fluids over 1 hour(s), Rate: 1000 mL/hr, Dispensed: 1000 mL bag, Site: #1 right hand. Medication Ordered: IV NS : initial bolus none -, then 1000 mL/hr for X1 (NOW). Given 15:09/20/2016 Melody Martinez, Medication Administered: GI COCKTAIL RED [PO] (MAGNESIUM-ALUMINUM), Dose: 35 mL Oral Suspension PO. Medication Ordered: GI Cocktail RED PO 35 mL with Lidocaine Viscous Mouth/Throat 10 mL, Diphenhydramine Oral 10 mL, Maalox Plus Oral 15 mL (NOW). Given 15:36 09/20/2016 Melody Martinez, Medication Administered: DEMEROL [IVP] (MEPERIDINE HCL), Dose: 50 mg IVP over 1 minute(s), Site: #1 right hand. Medication Ordered: Demerol IV 50 mg (HIGH ALERT MEDICATION, NOW). Given 17:36 09/20/2016 Azeb Sherman R.N. Medication Administered: TORADOL [IVP], Dose: 30 mg IVP over 1 minute(s), Site: #1 right hand. Medication Ordered: Toradol IV 30 mg (NOW).
--- NOTE | 2016-09-20 20:34 | ED MAR SUMMARY ---
..... Medication Administration Record [facility] [address] [place] [place] [address] Patient: JAY KNIGHT Visit ID: [id number] 25y, F Weight: 68.0 kg Height/Length: 62 in BMI: 27.4 ALLERGIES: None Given 15:05 09/20/2016 Melody Martinez, Medication Administered: ZOFRAN [IVP] (ONDANSETRON HCL), Dose: 4 mg IVP over 1 minute(s), Site: #1 right hand. Medication Ordered: Zofran IV 4 mg (NOW). Start 15:09 09/20/2016 Melody Martinez,, Stop 16:15 09/20/2016 Melody Martinez, Medication Administered: IV NS (SALINE), Dose: IV Fluids over 1 hour(s), Rate: 1000 mL/hr, Dispensed: 1000 mL bag, Site: #1 right hand. Medication Ordered: IV NS : initial bolus none -, then 1000 mL/hr for X1 (NOW). Given 15:09/20/2016 Melody Martinez, Medication Administered: GI COCKTAIL RED [PO] (MAGNESIUM-ALUMINUM), Dose: 35 mL Oral Suspension PO. Medication Ordered: GI Cocktail RED PO 35 mL with Lidocaine Viscous Mouth/Throat 10 mL, Diphenhydramine Oral 10 mL, Maalox Plus Oral 15 mL (NOW). Given 15:36 09/20/2016 Melody Martinez, Medication Administered: DEMEROL [IVP] (MEPERIDINE HCL), Dose: 50 mg IVP over 1 minute(s), Site: #1 right hand. Medication Ordered: Demerol IV 50 mg (HIGH ALERT MEDICATION, NOW). Given 17:36 09/20/2016 Azeb Sherman R.N. Medication Administered: TORADOL [IVP], Dose: 30 mg IVP over 1 minute(s), Site: #1 right hand. Medication Ordered: Toradol IV 30 mg (NOW).
--- NOTE | 2016-09-20 20:34 | ED DISCHARGE INSTRUCTIONS ---
Patient: JAY KNIGHT General Instructions [facility] VisitID: [id number] [address] [place] [address] 25y, F Registration Date/Time: 09/20/2016 Biliary colic with multiple gallstones. No cholecystitis. INSTRUCTIONS Avoid fatty and fried/greasy foods. Prescription Medications: Hydrocodone/APAP 5mg / 325mg: take 1 orally every 6 hours as needed for pain. Dispense fifteen (15). No refill. Zofran (orally disintegrating tablets) 4 mg: take 1 orally every 6 hours as needed for nausea and vomiting. Dispense ten (10). No refill. Substitution is permissible. Follow-up with: Bruce Browne MD, General Surgeon, , [facility], [address] [place], [place] [id number] Follow up in about three days. Call for an appointment. ADDITIONAL INFORMATION GallstonesWith Biliary Colic [Confirmed Dx] The abdominal pain that you have today is due to spasm of the gallbladder. The gallbladder is a small sac under the liver which stores and releases bile. Bile is a fluid that aids in the digestion of fat. A gallstone may form inside the gallbladder and block the flow of bile fluid. This causes mild to severe crampy pain in the mid or right upper abdomen with nausea and vomiting. Home Care: Rest in bed and follow a clear liquid diet until feeling better. If pain or nausea medicine was given to help with your symptoms, take these as directed. Fat in your diet makes the gallbladder contract and may cause increased pain. Therefore, avoid fat in your diet over the next two days and follow a low-fat diet after that. If you are overweight, a low-fat diet will also help you lose weight. Follow Up with your doctor. There is a 50% chance that you will have another episode of pain from your gallstones during the next 2 years. Removal of the gallbladder is the treatment of choice to prevent this. Schedule an appointment with your own doctor during the next week to discuss the treatment options. Get Prompt Medical Attention if any of the following occur: Pain gets worse or moves to the right lower abdomen Repeated vomiting Swelling of the abdomen Pain lasts over 6 hours Fever of 100.4F (38C) or higher, or as directed by your healthcare provider Weakness, dizziness or fainting Dark urine or light colored stools Yellow color of the skin or eyes Chest, arm, back, neck or jaw pain [place] Diet A bland diet is used for patients with an upset stomach. It consists of foods that are mild and easy to digest. It is better to eat small frequent meals rather than three large meals a day. BEVERAGES OK: Fruit juices, non-caffeinated teas and coffee, non-carbonated trimble AVOID: Carbonated beverage, caffeinated tea and coffee, all alcoholic beverages BREAD OK: Refined white, wheat or rye bread, warren or soda crackers, [place] toast, plain rolls, bagels AVOID: Whole-grain bread CEREAL OK: Refined cereals: cooked or ready to eat AVOID: Whole grain cereals and granola, or those containing bran, seeds or nuts DESSERTS OK: Peanut butter and all others except those to "avoid" AVOID: Chocolate, cocoa, coconut, popcorn, nuts, seeds, jam, marmalade FRUITS OK: Canned, cooked, frozen or fresh fruits without seeds or tough skin AVOID: Olives, skin and seeds of fruit MEATS OK: All fresh or preserved meat, fish and fowl AVOID: Any that are prepared with those spices to "avoid" CHEESE & EGGS OK: Eggs, cottage cheese, cream cheese, other cheeses AVOID: All cheeses made with those spices to "avoid" POTATOES & PASTA OK: Potato, rice, macaroni, noodles, spaghetti AVOID: None SOUPS OK: All soups without heavy seasoning AVOID: Soups made with those spices to "avoid" VEGETABLES OK: Canned, cooked, fresh or frozen mildly flavored vegetables without seeds, skins or coarse fiber AVOID: Vegetables prepared with those spices to "avoid"; skin and seeds of vegetables and those with coarse fiber SPICES OK: Salt, lemon and [place] reg[place] juice, vinegar, all extracts, benjamin, cinnamon, thyme, mace, allspice, paprika AVOID: [place] powder, cloves, pepper, seed spices, garlic, gravy pickles, highly seasoned salad dressings Hydrocodone Bitartrate, Acetaminophen Oral tablet What is this medicine? ACETAMINOPHEN; HYDROCODONE (a set a SANGEETHA jose fen; shauna droe RICHARD done) is a pain reliever. It is used to treat mild to moderate pain. How should I use this medicine? Take this medicine by mouth. Swallow it with a full glass of water. Follow the directions on the prescription label. If the medicine upsets your stomach, take the medicine with food or milk. Do not take more than you are told to take. Talk to your ampoule examiner regarding the use of this medicine in children. This medicine is not approved for use in children. What side effects may I notice from receiving this medicine? Side effects that you should report to your doctor or health career resource technician as soon as possible: allergic reactions like skin rash, itching or hives, swelling of the face, lips, or tongue breathing problems confusion feeling faint or lightheaded, falls stomach pain yellowing of the eyes or skin Side effects that usually do not require medical attention (report to your doctor or health career resource technician if they continue or are bothersome): nausea, vomiting stomach upset What may interact with this medicine? alcohol antihistamines isoniazid medicines for depression, anxiety, or psychotic disturbances medicines for sleep muscle relaxants naltrexone narcotic medicines (opiates) for pain phenobarbital ritonavir tramadol What if I miss a dose? If you miss a dose, take it as soon as you can. If it is almost time for your next dose, take only that dose. Do not take double or extra doses. Where should I keep my medicine? Keep out of the reach of children. This medicine can be abused. Keep your medicine in a safe place to protect it from theft. Do not share this medicine with anyone. Selling or giving away this medicine is dangerous and against the law. Store at room temperature between 15 and 30 degrees C (59 and 86 degrees F). Protect from light. Keep container tightly closed. Throw away any unused medicine after the expiration date. Discard unused medicine and used packaging carefully. Pets and children can be harmed if they find used or lost packages. What should I tell my health care provider before I take this medicine? They need to know if you have any of these conditions: brain tumor Crohn's disease, inflammatory bowel disease, or ulcerative colitis drink more than 3 alcohol-containing drinks per day drug abuse or addiction head injury heart or circulation problems kidney disease or problems going to the bathroom liver disease lung disease, asthma, or breathing problems an unusual or allergic reaction to acetaminophen, hydrocodone, other opioid analgesics, other medicines, foods, dyes, or preservatives or trying to get breast-feeding What should I watch for while using this medicine? Tell your doctor or health career resource technician if your pain does not go away, if it gets worse, or if you have new or a different type of pain. You may develop tolerance to the medicine. Tolerance means that you will need a higher dose of the medicine for pain relief. Tolerance is normal and is expected if you take the medicine for a long time. Do not suddenly stop taking your medicine because you may develop a severe reaction. Your body becomes used to the medicine. This does NOT mean you are addicted. Addiction is a behavior related to getting and using a drug for a non-medical reason. If you have pain, you have a medical reason to take pain medicine. Your doctor will tell you how much medicine to take. If your doctor wants you to stop the medicine, the dose will be slowly lowered over time to avoid any side effects. You may get drowsy or dizzy when you first start taking the medicine or change doses. Do not drive, use machinery, or do anything that may be dangerous until you know how the medicine affects you. Stand or sit up slowly. There are different types of narcotic medicines (opiates) for pain. If you take more than one type at the same time, you may have more side effects. Give your health care provider a list of all medicines you use. Your doctor will tell you how much medicine to take. Do not take more medicine than directed. Call emergency for help if you have problems breathing. The medicine will cause constipation. Try to have a bowel movement at least every 2 to 3 days. If you do not have a bowel movement for 3 days, call your doctor or health career resource technician. Too much acetaminophen can be very dangerous. Do not take Tylenol (acetaminophen) or medicines that contain acetaminophen with this medicine. Many non-prescription medicines contain acetaminophen. Always read the labels carefully. Ondansetron Oral disintegrating tablet What is this medicine? ONDANSETRON (on CARLOS se deonna) is used to treat nausea and vomiting caused by chemotherapy. It is also used to prevent or treat nausea and vomiting after surgery. How should I use this medicine? These tablets are made to dissolve in the mouth. Do not try to push the tablet through the foil backing. With dry hands, peel away the foil backing and gently remove the tablet. Place the tablet in the mouth and allow it to dissolve, then swallow. While you may take these tablets with water, it is not necessary to do so. Talk to your ampoule examiner regarding the use of this medicine in children. Special care may be needed. What side effects may I notice from receiving this medicine? Side effects that you should report to your doctor or health career resource technician as soon as possible: allergic reactions like skin rash, itching or hives, swelling of the face, lips, or tongue breathing problems dizziness fast or irregular heartbeat feeling faint or lightheaded, falls fever and chills swelling of the hands and feet tightness in the chest Side effects that usually do not require medical attention (report to your doctor or health career resource technician if they continue or are bothersome): constipation or diarrhea headache What may interact with this medicine? Do not take this medicine with any of the following medications: -apomorphine -cisapride -dofetilide -dronedarone -pimozide -thioridazine -ziprasidone This medicine may also interact with the following medications: -carbamazepine -phenytoin -rifampicin -tramadol -other medicines that prolong the QT interval (cause an abnormal heart rhythm) What if I miss a dose? If you miss a dose, take it as soon as you can. If it is almost time for your next dose, take only that dose. Do not take double or extra doses. Where should I keep my medicine? Keep out of the reach of children. Store between 2 and 30 degrees C (36 and 86 degrees F). Throw away any unused medicine after the expiration date. What should I tell my health care provider before I take this medicine? They need to know if you have any of these conditions: heart disease history of irregular heartbeat liver disease low levels of magnesium or potassium in the blood an unusual or allergic reaction to ondansetron, granisetron, other medicines, foods, dyes, or preservatives or trying to get breast-feeding What should I watch for while using this medicine? Check with your doctor or health career resource technician as soon as you can if you have any sign of an allergic reaction. You have been given the following additional information: Biliary Colic With Gallstone (Confirmed) Diet, Sarmad (Adult) Hydrocodone Bitartrate, Acetaminophen Oral tablet Ondansetron Oral disintegrating tablet (Electronically signed by Bc Milligan Dr. 09/20/2016 19:09)
--- NOTE | 2016-09-20 20:34 | ED DISCHARGE INSTRUCTIONS ---
Patient: JAY KNIGHT General Instructions [facility] VisitID: [id number] [address] [place] [address] 25y, F Registration Date/Time: 09/20/2016 Biliary colic with multiple gallstones. No cholecystitis. INSTRUCTIONS Avoid fatty and fried/greasy foods. Prescription Medications: Hydrocodone/APAP 5mg / 325mg: take 1 orally every 6 hours as needed for pain. Dispense fifteen (15). No refill. Zofran (orally disintegrating tablets) 4 mg: take 1 orally every 6 hours as needed for nausea and vomiting. Dispense ten (10). No refill. Substitution is permissible. Follow-up with: Bruce Browne MD, General Surgeon, , [facility], [address] [place], [place] [id number] Follow up in about three days. Call for an appointment. ADDITIONAL INFORMATION GallstonesWith Biliary Colic [Confirmed Dx] The abdominal pain that you have today is due to spasm of the gallbladder. The gallbladder is a small sac under the liver which stores and releases bile. Bile is a fluid that aids in the digestion of fat. A gallstone may form inside the gallbladder and block the flow of bile fluid. This causes mild to severe crampy pain in the mid or right upper abdomen with nausea and vomiting. Home Care: Rest in bed and follow a clear liquid diet until feeling better. If pain or nausea medicine was given to help with your symptoms, take these as directed. Fat in your diet makes the gallbladder contract and may cause increased pain. Therefore, avoid fat in your diet over the next two days and follow a low-fat diet after that. If you are overweight, a low-fat diet will also help you lose weight. Follow Up with your doctor. There is a 50% chance that you will have another episode of pain from your gallstones during the next 2 years. Removal of the gallbladder is the treatment of choice to prevent this. Schedule an appointment with your own doctor during the next week to discuss the treatment options. Get Prompt Medical Attention if any of the following occur: Pain gets worse or moves to the right lower abdomen Repeated vomiting Swelling of the abdomen Pain lasts over 6 hours Fever of 100.4F (38C) or higher, or as directed by your healthcare provider Weakness, dizziness or fainting Dark urine or light colored stools Yellow color of the skin or eyes Chest, arm, back, neck or jaw pain Mercer Diet A bland diet is used for patients with an upset stomach. It consists of foods that are mild and easy to digest. It is better to eat small frequent meals rather than three large meals a day. BEVERAGES OK: Fruit juices, non-caffeinated teas and coffee, non-carbonated trimble AVOID: Carbonated beverage, caffeinated tea and coffee, all alcoholic beverages BREAD OK: Refined white, wheat or rye bread, warren or soda crackers, [place]olia toast, plain rolls, bagels AVOID: Whole-grain bread CEREAL OK: Refined cereals: cooked or ready to eat AVOID: Whole grain cereals and granola, or those containing bran, seeds or nuts DESSERTS OK: Peanut butter and all others except those to "avoid" AVOID: Chocolate, cocoa, coconut, popcorn, nuts, seeds, jam, marmalade FRUITS OK: Canned, cooked, frozen or fresh fruits without seeds or tough skin AVOID: Olives, skin and seeds of fruit MEATS OK: All fresh or preserved meat, fish and fowl AVOID: Any that are prepared with those spices to "avoid" CHEESE & EGGS OK: Eggs, cottage cheese, cream cheese, other cheeses AVOID: All cheeses made with those spices to "avoid" POTATOES & PASTA OK: Potato, rice, macaroni, noodles, spaghetti AVOID: None SOUPS OK: All soups without heavy seasoning AVOID: Soups made with those spices to "avoid" VEGETABLES OK: Canned, cooked, fresh or frozen mildly flavored vegetables without seeds, skins or coarse fiber AVOID: Vegetables prepared with those spices to "avoid"; skin and seeds of vegetables and those with coarse fiber SPICES OK: Salt, lemon and [place] juice, vinegar, all extracts, benjamin, cinnamon, thyme, mace, allspice, paprika AVOID: [place] powder, cloves, pepper, seed spices, garlic, gravy pickles, highly seasoned salad dressings Hydrocodone Bitartrate, Acetaminophen Oral tablet What is this medicine? ACETAMINOPHEN; HYDROCODONE (a set a SANGEETHA jose fen; shauna droe RICHARD done) is a pain reliever. It is used to treat mild to moderate pain. How should I use this medicine? Take this medicine by mouth. Swallow it with a full glass of water. Follow the directions on the prescription label. If the medicine upsets your stomach, take the medicine with food or milk. Do not take more than you are told to take. Talk to your ultimate hoops referee regarding the use of this medicine in children. This medicine is not approved for use in children. What side effects may I notice from receiving this medicine? Side effects that you should report to your doctor or health home health care respiratory therapist as soon as possible: allergic reactions like skin rash, itching or hives, swelling of the face, lips, or tongue breathing problems confusion feeling faint or lightheaded, falls stomach pain yellowing of the eyes or skin Side effects that usually do not require medical attention (report to your doctor or health home health care respiratory therapist if they continue or are bothersome): nausea, vomiting stomach upset What may interact with this medicine? alcohol antihistamines isoniazid medicines for depression, anxiety, or psychotic disturbances medicines for sleep muscle relaxants naltrexone narcotic medicines (opiates) for pain phenobarbital ritonavir tramadol What if I miss a dose? If you miss a dose, take it as soon as you can. If it is almost time for your next dose, take only that dose. Do not take double or extra doses. Where should I keep my medicine? Keep out of the reach of children. This medicine can be abused. Keep your medicine in a safe place to protect it from theft. Do not share this medicine with anyone. Selling or giving away this medicine is dangerous and against the law. Store at room temperature between 15 and 30 degrees C (59 and 86 degrees F). Protect from light. Keep container tightly closed. Throw away any unused medicine after the expiration date. Discard unused medicine and used packaging carefully. Pets and children can be harmed if they find used or lost packages. What should I tell my health care provider before I take this medicine? They need to know if you have any of these conditions: brain tumor Crohn's disease, inflammatory bowel disease, or ulcerative colitis drink more than 3 alcohol-containing drinks per day drug abuse or addiction head injury heart or circulation problems kidney disease or problems going to the bathroom liver disease lung disease, asthma, or breathing problems an unusual or allergic reaction to acetaminophen, hydrocodone, other opioid analgesics, other medicines, foods, dyes, or preservatives or trying to get breast-feeding What should I watch for while using this medicine? Tell your doctor or health home health care respiratory therapist if your pain does not go away, if it gets worse, or if you have new or a different type of pain. You may develop tolerance to the medicine. Tolerance means that you will need a higher dose of the medicine for pain relief. Tolerance is normal and is expected if you take the medicine for a long time. Do not suddenly stop taking your medicine because you may develop a severe reaction. Your body becomes used to the medicine. This does NOT mean you are addicted. Addiction is a behavior related to getting and using a drug for a non-medical reason. If you have pain, you have a medical reason to take pain medicine. Your doctor will tell you how much medicine to take. If your doctor wants you to stop the medicine, the dose will be slowly lowered over time to avoid any side effects. You may get drowsy or dizzy when you first start taking the medicine or change doses. Do not drive, use machinery, or do anything that may be dangerous until you know how the medicine affects you. Stand or sit up slowly. There are different types of narcotic medicines (opiates) for pain. If you take more than one type at the same time, you may have more side effects. Give your health care provider a list of all medicines you use. Your doctor will tell you how much medicine to take. Do not take more medicine than directed. Call emergency for help if you have problems breathing. The medicine will cause constipation. Try to have a bowel movement at least every 2 to 3 days. If you do not have a bowel movement for 3 days, call your doctor or health home health care respiratory therapist. Too much acetaminophen can be very dangerous. Do not take Tylenol (acetaminophen) or medicines that contain acetaminophen with this medicine. Many non-prescription medicines contain acetaminophen. Always read the labels carefully. Ondansetron Oral disintegrating tablet What is this medicine? ONDANSETRON (on CARLOS se deonna) is used to treat nausea and vomiting caused by chemotherapy. It is also used to prevent or treat nausea and vomiting after surgery. How should I use this medicine? These tablets are made to dissolve in the mouth. Do not try to push the tablet through the foil backing. With dry hands, peel away the foil backing and gently remove the tablet. Place the tablet in the mouth and allow it to dissolve, then swallow. While you may take these tablets with water, it is not necessary to do so. Talk to your ultimate hoops referee regarding the use of this medicine in children. Special care may be needed. What side effects may I notice from receiving this medicine? Side effects that you should report to your doctor or health home health care respiratory therapist as soon as possible: allergic reactions like skin rash, itching or hives, swelling of the face, lips, or tongue breathing problems dizziness fast or irregular heartbeat feeling faint or lightheaded, falls fever and chills swelling of the hands and feet tightness in the chest Side effects that usually do not require medical attention (report to your doctor or health home health care respiratory therapist if they continue or are bothersome): constipation or diarrhea headache What may interact with this medicine? Do not take this medicine with any of the following medications: -apomorphine -cisapride -dofetilide -dronedarone -pimozide -thioridazine -ziprasidone This medicine may also interact with the following medications: -carbamazepine -phenytoin -rifampicin -tramadol -other medicines that prolong the QT interval (cause an abnormal heart rhythm) What if I miss a dose? If you miss a dose, take it as soon as you can. If it is almost time for your next dose, take only that dose. Do not take double or extra doses. Where should I keep my medicine? Keep out of the reach of children. Store between 2 and 30 degrees C (36 and 86 degrees F). Throw away any unused medicine after the expiration date. What should I tell my health care provider before I take this medicine? They need to know if you have any of these conditions: heart disease history of irregular heartbeat liver disease low levels of magnesium or potassium in the blood an unusual or allergic reaction to ondansetron, granisetron, other medicines, foods, dyes, or preservatives or trying to get breast-feeding What should I watch for while using this medicine? Check with your doctor or health home health care respiratory therapist as soon as you can if you have any sign of an allergic reaction. You have been given the following additional information: Biliary Colic With Gallstone (Confirmed) Diet, Sarmad (Adult) Hydrocodone Bitartrate, Acetaminophen Oral tablet Ondansetron Oral disintegrating tablet (Electronically signed by Bc Milligan Dr. 09/20/2016 19:09)
--- NOTE | 2016-09-20 20:34 | ED MED RECONCILIATION SUMMARY ---
Patient: JAY KNIGHT Medication Reconciliation Report [facility] VisitID: [id number] [place] [address] 25y, F Registration Date/Time: 09/20/2016 Weight: 68.0 kg Height/Length: 62 in. BMI: 27.4 ALLERGIES: None The patient's Home Medications are listed below: NONE. The source(s) of the original Home Medication information: patient The following Medications were given to the patient in the Emergency Department: Zofran [IVP] IVP 4 mg, administered: 09/20/2016 3:05:00 PM IV NS IV Fluids bolus 0, then 1000 mL/hr, administered: 09/20/2016 3:09:00 PM GI COCKTAIL RED [PO] PO 35 mL, administered: 09/20/2016 3:21:00 PM Demerol [IVP] IVP 50 mg, administered: 09/20/2016 3:36:00 PM Toradol [IVP] IVP 30 mg, administered: 09/20/2016 5:36:00 PM The following Medications were prescribed to the patient: Hydrocodone/APAP 5mg / 325mg: take 1 orally every 6 hours as needed for pain. Dispense fifteen (15). No refill. -- Bc Milligan Dr. Zofran (orally disintegrating tablets) 4 mg: take 1 orally every 6 hours as needed for nausea and vomiting. Dispense ten (10). No refill. Substitution is permissible. -- Bc Milligan Dr.
--- NOTE | 2016-09-20 20:52 | DIAGNOSTIC IMAGING REPORT ---
PROCEDURE: US ABDOMEN ULTRASOUND-LIMITED INDICATION: Right abdominal pain. TECHNIQUE: Barnett scale and color Doppler sonographic images of the abdomen were obtained. COMPARISON: Compared to CT abdomen and pelvis on 09/20/2016. FINDINGS: There are multiple mobile gallstones (largest 8 mm). No evidence of gallbladder wall thickening. Common duct is mildly prominent (6 mm). Portions of the liver, pancreas, and right kidney are seen, and are normal. IMPRESSION: 1. Cholelithiasis (multiple mobile gallstones). 2. Borderline prominence of the common duct cysts (6 mm). While this may be normal, correlation with biliary function studies is recommended. 3. Findings discussed with Dr. Bc Milligan.
[2016-10-29] MEDS ORDERED: HYCET1 ML PO (06:38)
[2016-11-11] MEDS ORDERED: HYCET1 ML PO (12:56)
== END 2016-09-20 19:20 | disposition home or self-care (01) ==
LOC: ED SRH 14:26
DX: K80.70 Calculus of gallbladder and bile duct without cholecystitis without obstruction (principal)
CPT/HCPCS: 90004; 90074; 90100; 90469; 92235; 92530; 93070; 95059

== ENCOUNTER 2016-10-24 06:22 | Day surgery (SDC) | payer OTHER ==
[~2016-10-24] VITALS: Ht 157.5 cm; Wt 85.6 kg
[2016-10-24] MEDS ORDERED: HYCET1 ML PO (08:37)
--- NOTE | 2016-10-24 08:38 | Provider's Discharge Care Plan ---
Problem, Goal, Plan Problem List 1. S/P laparoscopic cholecystectomy Goals: Improve disease control, Therapeutic intervention Instructions: Follow up as directed, Take meds as directed
--- NOTE | 2016-10-24 08:38 | Provider's Discharge Care Plan ---
Problem, Goal, Plan Problem List 1. S/P laparoscopic cholecystectomy Goals: Improve disease control, Therapeutic intervention Instructions: Follow up as directed, Take meds as directed
--- NOTE | 2016-10-24 09:50 | DIAGNOSTIC IMAGING REPORT ---
PROCEDURE: XR INTRAOPERATIVE LAP WENDIE INDICATION: GALLSTONES TECHNIQUE: Intraoperative fluoroscopy provided for Dr. Yepez performing an intraoperative cholangiogram following cholecystectomy. Total fluoroscopy time 8 seconds. Cumulative dose 2.9 mGy. COMPARISON: Abdominal ultrasound 09/20/2016. FINDINGS: Two intraoperative fluoroscopic spot images of the right upper quadrant of the abdomen demonstrate cannulation of the cystic duct stump and opacification of the intrahepatic and extrahepatic biliary tree. There are no filling defects. There is normal passage of contrast into the duodenum. IMPRESSION: 1. Negative intraoperative cholangiogram.
--- NOTE | 2016-10-24 10:07 | OPERATIVE REPORT ---
DATE OF SURGERY: 10/24/2016 SURGEON: Jennifer Yepez III, MD [employer] REFINING EQUIPMENT OPERATOR: None. PREOPERATIVE DIAGNOSIS: 1. Symptomatic cholelithiasis POSTOPERATIVE DIAGNOSES: 1. Chronic cholecystitis 2. Cholelithiasis 3. Normal intraoperative cholangiogram PROCEDURE PERFORMED: 1. Laproscopic cholecystectomy and floroscopic intraoperative cholangiogram ANESTHESIA: General endotracheal. ESTIMATED BLOOD LOSS: None. FLUIDS: 700 mL lactated Ringer's. PATHOLOGY SPECIMEN: Gallbladder and contents. INDICATIONS: A 25-year-old female who was seen in the emergency department at [facility] with abdominal pain. During her workup, a CT was noted to have cholelithiasis followed by an ultrasound which confirmed the diagnosis. She has been experiencing discomfort in the right upper quadrant on a routine basis. SURGICAL FINDINGS: The patient had a thickened gallbladder, multiple stones, a very short cystic duct and a normal intraoperative cholangiogram with free flow of contrast material into the duodenum. Visualization of hepatic radicles, hepatic duct, and common bile duct, no evidence of retained stone. SURGICAL TECHNIQUE: The patient was brought to the operating room and placed in the dorsal supine position where she underwent general endotracheal anesthesia by the anesthesiology department. After proper anesthesia had taken effect, the patient 's abdomen was prepped using Betadine and draped in a sterile fashion. An infraumbilical incision made, carried down through skin and subcutaneous tissue. A Veress needle was inserted through this site into the abdominal cavity and after ascertaining its appropriate position with suction irrigation, a pneumoperitoneum obtained using CO2 insufflation to approximately 14-15 mmHg pressure. Once these pressures were reached, the Veress needle was removed and replaced with a 10 mm trocar. The trocar removed leaving the sleeve behind, through which a laparoscopic video camera was introduced into the abdominal cavity. Under direct visualization, a separate 10 mm trocar was placed in the subxiphoid region, two 5 mm trocars were placed in the right anterolateral abdominal wall, approximately 3-4 fingerbreadths below the costal margin. Each entered the abdominal cavity under direct visualization. The trocars were removed, leaving the sleeves behind, through which laparoscopic instrumentation was introduced into the abdominal cavity. The gallbladder grasped with some difficulty, retracted cephalad. Using a combination of electrocautery, hydrodissection and blunt dissection, we were able to circumferentially isolate a very short cystic duct. A clip was placed at the junction of the neck of the gallbladder and the cystic duct. A small incision made in the anterior surface of the cystic duct. A percutaneous cholangiogram catheter was then threaded through the anterior abdominal wall into the cystic duct, clipped into position and fluoroscopic intraoperative cholangiogram obtained with the aforementioned findings noted. Once completed, the percutaneous cholangiogram catheter was retrieved from the abdominal cavity. The cystic duct was clipped in continuity and divided. The cystic artery identified, clipped in continuity and divided. The gallbladder was taken down from its bed using electrocautery dissection. Once completely freed from its bed, the gallbladder was transferred to a sterile specimen container bag and retrieved from the abdominal cavity and sent to pathology. The gallbladder bed was inspected for hemostasis. There was no evidence of bile staining. The right upper quadrant was irrigated with warm normal saline and antibiotic solution and the irrigant suctioned out. Approximately 30 mL of 0.5% Marcaine with epinephrine was sprayed over the right dome of the liver for postoperative analgesia. The pneumoperitoneum released and all trocars were removed from the abdominal cavity. All trocar sites approximated using 4-0 subdermal Polysorb and Steri-Strips. A sterile pressure occlusive dressing was placed over each site. The patient tolerated the procedure well, was extubated and transferred to the recovery room in stable condition. There were no intraoperative or anesthetic complications.
[2016-10-24 12:34] VITALS: BP 114/65
[2016-10-29] MEDS ORDERED: HYCET1 ML PO (06:38)
[2016-11-11] MEDS ORDERED: HYCET1 ML PO (12:56)
== END 2016-10-24 13:02 | disposition home or self-care (01) ==
LOC: SCU SRH 06:22 → OR SRH 06:22 → SCU SRH 06:23 → OR SRH 07:30
PROVIDERS: Specialist
PROC: 0FT44ZZ Resection of Gallbladder, Percutaneous Endoscopic Approach (ICD-10-PCS; principal; 2016-10-24 07:30)
PROC: BF131ZZ Fluoroscopy of Gallbladder and Bile Ducts using Low Osmolar Contrast (ICD-10-PCS; principal; 2016-10-24 07:30)
DX: K80.12 Calculus of gallbladder with acute and chronic cholecystitis without obstruction (principal)
CPT/HCPCS: 29240; 50002; 60001; 70002; 80102; 80212; 80248; 82669; 82794; 82807; 83338; 83339; 83348; 83587; 83920; 83937; 83982; 84038; 93070

== ENCOUNTER 2016-10-25 02:28 | Inpatient (IN) | payer OTHER ==
[~2016-10-25] VITALS: Ht 157.5 cm; Wt 89.7 kg
[~2016-10-25 02:28] MED LIST: HYCET1 ML PO
--- NOTE | 2016-10-25 04:47 | ED NURSING NOTES ---
Clinical Report - Nurses [facility] [place] [address] 10/25/2016 2:28 Patient: JAY KNIGHT TRIAGE Triage time 02:38. Chief Complaint: (Abdominal pain, post cholecyctectomy this AM). --02:43 Rey Burnett R.N. 02:37 10/25/16. BP: 127/80 taken on the left arm. HR: 97 (regular). RR: 18. O2 saturation: 100% on room air. Temp: 98.3 F (oral). Pain level now: 6/10. Pain level upon arrival: 6/10. Pain level at maximum: 10/10. Describes the quality as sharp. --02:43 Rey Burnett R.N. Acuity: LEVEL 3. Alert. BLOSSOM COMA SCORE: [place] Coma Scale: 15- eyes open spontaneously (4); best verbal response- oriented x 4 (5); best motor response- obeys commands (6). --02:43 Rey Burnett R.N. Weight: 79.3 kg stated. Height/Length: 62 inches Per Patient. BMI: 32. --02:38 Rey Burnett R.N. Medications None. --02:41 Rey Burnett R.N. Allergies No Known Drug Allergy. --02:41 Rey Burnett R.N. History Arrived by private vehicle. Historian: patient. Accompanied by friend. No primary care physician. This started today. ( started this morning after returning home from having gallbladder removed). 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 PAST MEDICAL HX: Last normal menstrual period- . SOCIAL HX: Never smoker. Occasional alcohol use. History of heavy drug use: marijuana. Recently used drugs today. SELF HARM ASSESSMENT: A self harm assessment was performed. The patient answered "no" to the question "Have you recently felt down, depressed, or hopeless?", "Have you noticed less interest or pleasure in doing things?", "Do you have thoughts of harming or killing yourself?", "Are you here because you tried to hurt yourself?", "Have you ever tried to hurt yourself before today?" and "Have you recently had thoughts about harming or killing others?". FALL RISK ASSESSMENT: Fall risk assessment completed. No fall risk identified. LEARNING NEEDS ASSESSMENT: The learning needs assessment revealed no barriers. --02:43 Rey Burnett R.N. PROBLEMS: Biliary Colic. --02:41 Rey Burnett R.N. ADDITIONAL SURGERIES: Cholecystectomy. --02:41 Rey Burnett R.N. Interventions ID band on patient. To treatment room. --02:43 Rey Burnett R.N. PHYSICAL ASSESSMENT ( patient has multiple (4 counted) small bandages covering small surgical sites. bandage on upper abdomen is bloody, but intact. Other bandages appear clean and intact.). GENERAL / NEURO / PSYCH: Alert. Oriented X 4. HEENT: Pupils equal, round and reactive to light. Mucous membranes are pink. RESPIRATORY: Respirations not labored. CVS: Capillary refill less than 2 seconds. GI / : Abdomen soft. Abdominal tenderness diffusely. SKIN: Skin is warm and dry. --02:47 Rey Burnett R.N. ( pt states being in pain. Dr. Gaviria). --03:07 Rey Burnett R.N. NURSING PROGRESS NOTES Reassurance given. Two patient identifiers checked. Call light placed in reach. Side rails up x 1. Bed placed in lowest position. Brakes of bed on. Patient ready for evaluation- chart flagged. Patient waiting for evaluation. --02:47 Rey Burnett R.N. 04:08 10/25/2016 Site #1 started via IV in the right antecubital space with an 20g angiocath; one attempt. Blood drawn: rainbow set. Labeled in the presence of the patient and sent to the lab. Saline lock flushed with saline. --04:13 Rey Burnett R.N. 04:10 10/25/2016 Dilaudid (HYDROmorphone HCl PF) IVP 1 mg given over 2 minute(s) via site #1. Allergies verified, confirmed 5 rights and sedative warning given to the patient. IV patency established. IV site checked: no pain, redness, or swelling. IV flushed thoroughly pre- and post-medication administration. --04:14 Rey Burnett R.N. 04:10 10/25/2016 Started bag #1 1000 mL IV Fluids IV NS (Saline); bolus of 1000 mL wide open then at 1000 mL/hr over 1 hour(s) via site #1. Allergies verified and confirmed 5 rights. IV patency established. IV site checked: no pain, redness, or swelling. IV flushed thoroughly pre- and post-medication administration. --04:16 Rey Burnett R.N. 04:11 10/25/2016 Zofran (Ondansetron HCl) IVP 4 mg given over 2 minute(s) via site #1. Allergies verified and confirmed 5 rights. IV patency established. IV site checked: no pain, redness, or swelling. IV flushed thoroughly pre- and post-medication administration. --04:14 Rey Burnett R.N. 05:25 10/25/16. ( gave pt h&p form to fill out). --05:25 Melody Stewart ER Tech1 06:10 10/25/2016 Dilaudid (HYDROmorphone HCl PF) IVP 1 mg given over 1 minute(s) via site #1. Allergies verified, confirmed 5 rights and sedative warning given to the patient. IV patency established. IV site checked: no pain, redness, or swelling. IV flushed thoroughly pre- and post-medication administration. IVP given by RN. --06:10 Lamont Carreon R.N. 06:45 10/25/16. BP: 126/71. HR: 90. RR: 15. O2 saturation: 96%. Pain level now 0/10. --06:46 Lamont Carreon R.N. 06:50 10/25/2016 IV Fluids IV NS Discontinued: bag #1 completed upon admission. Total amount infused: 1000 mL. IV patency established. IV site checked: no pain, redness, or swelling. IV flushed thoroughly. --06:55 Rey Burnett R.N. DISPOSITION / DISCHARGE Departure time: 06:50. Condition at departure: stable. Disposition: observation (06:50). Transported via stretcher by nurse with monitor. Report was given to a nurse. (BRIEN Gabriel (Floor nurse)). Patient's personal items include: shirt, pants, shoes, wallet and cell phone; items were transported with the patient. --06:53 Rey Burnett R.N. 06:43 10/25/2016 Site #[address] upon admission; patent, no pain and no signs of infection or infiltration. Good blood return present. Converted to saline lock and flushed with saline; flushes easily. --06:53 Rey Burnett R.N. Locked/Released at 10/25/2016 6:55 by Rey Burnett R.N.
--- NOTE | 2016-10-25 04:47 | ED ORDER SUMMARY ---
..... Patient: JAY KNIGHT OrderSheet [facility] VisitID: [id number] [place] [address] 25y, F Registration Date/Time: 10/25/2016 ORDER SHEET Weight: 79.3 kg (stated) Allergies: No Known Drug Allergy GENERAL ORDERS: CT Abd/Pel w Cont (No) (N/A) Urgent (03:10/25/2016 Charissa Gillis) (Ack 3:25 ALawrence ER Tech1) (4:51 Nova) CBC w Diff Urgent (03:10/25/2016 Charissa Gillis) (Ack 3:25 ALawrence ER Tech1) (4:12 DDavis R.N.) CMP Urgent (03:10/25/2016 Charissa Gillis) (Ack 3:25 ALawrence ER Tech1) (4:12 DDavis R.N.) UA-Culture if indicated Urgent (03:24 10/25/2016 Charissa Gillis) (Ack 3:25 ALawrence ER Tech1) (4:52 DDavis R.N.) PT with INR Urgent (03:24 10/25/2016 Charissa Gillis) (Ack 3:25 ALawrence ER Tech1) (4:12 DDavis R.N.) Lipase Urgent (03:10/25/2016 Charissa Gillis) (Ack 3:25 ALawrence ER Tech1) (4:12 DDavis R.N.) Serum Quantitative Urgent (03:24 10/25/2016 Charissa Gillis) (Ack 3:25 ALawrence ER Tech1) (4:52 DDavis R.N.) Pulse oximeter (03:24 10/25/2016 Charissa Gillis) (Ack 3:25 ALawrence ER Tech1) (4:12 DDavis R.N.) MEDICATION ORDERS: IV FLUIDS: IV NS : initial bolus 1000 mL (1000 mL/hr), then none - for X1 (NOW) (03:10/25/2016 Charissa Gillis) (4:16 DDavis R.N.) Zofran IV 4 mg (NOW) (03:23 10/25/2016 Charissa Gillis) (4:14 Patrick Rico) Dilaudid IV 1 mg (HIGH ALERT MEDICATION, NOW) (03:24 10/25/2016 Charissa Gillis) (4:14 DDjosh Hoffmann.N.) Dilaudid IV 1 mg (HIGH ALERT MEDICATION, NOW) (06:06 10/25/2016 Charissa Gillis) (6:10 TLewidevendra Hoffmann.NPaola) ORDER SHEET NOTES: [Electronically signed by Rey Burnett R.N. (06:55 10/25/2016)] [Electronically signed by Everette Kay Dr. (07:22 11/02/2016)] [Electronically locked/signed by Rey Burnett R.N. (06:55 10/25/2016)]
--- NOTE | 2016-10-25 04:47 | ED ORDER SUMMARY ---
..... Patient: JAY KNIGHT OrderSheet [facility] VisitID: [id number] [place] [address] 25y, F Registration Date/Time: 10/25/2016 ORDER SHEET Weight: 79.3 kg (stated) Allergies: No Known Drug Allergy GENERAL ORDERS: CT Abd/Pel w Cont (No) (N/A) Urgent (03:10/25/2016 Charissa Gillis) (Ack 3:25 ALawrence ER Tech1) (4:51 Nova) CBC w Diff Urgent (03:10/25/2016 Charissa Gillis) (Ack 3:25 ALawrence ER Tech1) (4:12 DDavis R.N.) CMP Urgent (03:10/25/2016 Charissa Gillis) (Ack 3:25 ALawrence ER Tech1) (4:12 DDavis R.N.) UA-Culture if indicated Urgent (03:24 10/25/2016 Charissa Gillis) (Ack 3:25 ALawrence ER Tech1) (4:52 DDavis R.N.) PT with INR Urgent (03:24 10/25/2016 Charissa Gillis) (Ack 3:25 ALawrence ER Tech1) (4:12 DDavis R.N.) Lipase Urgent (03:10/25/2016 Charissa Gillis) (Ack 3:25 ALawrence ER Tech1) (4:12 DDavis R.N.) Serum Quantitative Urgent (03:24 10/25/2016 Charissa Gillis) (Ack 3:25 ALawrence ER Tech1) (4:52 DDavis R.N.) Pulse oximeter (03:24 10/25/2016 Charissa Gillis) (Ack 3:25 ALawrence ER Tech1) (4:12 DDavis R.N.) MEDICATION ORDERS: IV FLUIDS: IV NS : initial bolus 1000 mL (1000 mL/hr), then none - for X1 (NOW) (03:10/25/2016 Charissa Gillis) (4:16 DDavis R.N.) Zofran IV 4 mg (NOW) (03:23 10/25/2016 Charissa Gillis) (4:14 Patrick Rico) Dilaudid IV 1 mg (HIGH ALERT MEDICATION, NOW) (03:24 10/25/2016 Charissa Gillis) (4:14 DDjosh Hoffmann.N.) Dilaudid IV 1 mg (HIGH ALERT MEDICATION, NOW) (06:06 10/25/2016 Charissa Gillis) (6:10 TLewidevendra Hoffmann.NPaola) ORDER SHEET NOTES: [Electronically signed by Rey Burnett R.N. (06:55 10/25/2016)] [Electronically signed by Everette Kay Dr. (07:22 11/02/2016)] [Electronically locked/signed by Rey Burnett R.N. (06:55 10/25/2016)]
--- NOTE | 2016-10-25 05:45 | ED CLINICAL REPORT ---
Clinical Report - Physicians/Mid Levels [facility] [address] [place] [address] 10/25/2016 2:28 Patient: JAY KNIGHT Arrived- By private vehicle. Historian- patient. HISTORY OF PRESENT ILLNESS Chief Complaint: ABDOMINAL PAIN. At its maximum, severity described as severe. When seen in the E.D., severity described as severe. Modifying factors- worsened by movement. Relieved by rest. This started today and is still present (staying the same). It was abrupt in onset and has been constant and waxing/waning but is not gone now. No radiation. It is described as located in the upper abdomen. The patient has had nausea. No loss of appetite, vomiting or diarrhea. No additional abdominal pain. (reports having recent elective gallbladder surgery today. Patient states that she was doing well. Patient reports having flatus. No bowel movement yet.). No recent travel. Similar symptoms previously: None. Recent medical care: The patient was seen recently by a health care provider (outpatient surgery for elective gallbladder). REVIEW OF SYSTEMS All systems otherwise negative, except as recorded above. PAST HISTORY See nurses notes. Medications: None. Allergies: No Known Drug Allergy. SOCIAL HISTORY Never smoker. Alcohol use. History of drug use: marijuana. Recent travel. Is a local resident. ADDITIONAL NOTES The nursing notes have been reviewed. PHYSICAL EXAM Vital Signs: 10/25/2016 02:37 BP: 127/80. HR: 97. RR: 18. O2 saturation: 100%. Temp: 98.3 F. Pain level now: 6/10. Blood pressure normal. Oxygen saturation normal. Appearance: Alert. Oriented X3. No acute distress. ENT: Nose normal. Pharynx normal. No nasal discharge, pharyngeal erythema or tonsillar exudate. The mucous membranes are not dry. CVS: Normal heart rate and rhythm. Heart sounds normal. Pulses normal. Respiratory: No respiratory distress. Breath sounds normal. Chest nontender. Abdomen: Soft. No mass. (mildepigastric tenderness over areas of recent surgical intervention medication. Wounds are clean dry and intact. No drainage. No surrounding area of erythema.). Back: Normal inspection. Skin: Skin warm and dry. Normal skin color. No rash. Normal skin turgor. Extremities: Extremities exhibit normal ROM. No lower extremity edema. LABS, X-RAYS, AND EKG Abdominal CT: PROCEDURE: CT ABD/PELVIS WITH CONTRAST CLINICAL INDICATION: Severe right upper quadrant pain 20 hours status post cholecystectomy. Initial encounter. TECHNIQUE: 125 ml of Isovue 300 were injected intravenously and axial images were obtained of the entire abdomen and pelvis with sagittal and coronal reformations. COMPARISON: Abdominal ultrasound and CT abdomen/pelvis 09/20/2016 FINDINGS: ABDOMEN: Mild dependent atelectasis in both lung bases. Heart size is normal. Small postoperative pneumoperitoneum. There is also a small amount of air in the right lateral abdominal wall. Right upper quadrant subcutaneous fat and umbilical infiltration consistent with surgical ports. Cholecystectomy with a small amount of fluid around the tip of the liver.. Liver, pancreas, spleen, adrenal glands and kidneys are normal pill normal abdominal aorta. Normal appendix. PELVIS: Mild to moderate free fluid in the pelvis. 1.7 cm involuting right ovarian cyst. Normal uterus. Mild bladder wall thickening. Bones are unremarkable. IMPRESSION: 1. Cholecystectomy with minor postoperative of pneumoperitoneum. Mild to moderate free fluid the pelvis may represent postoperative pneumoperitoneum versus bile leak. Recommend nuclear medicine HIDA scan. 2. 1.7 cm involuting right ovarian cyst. The study was independently viewed by me and interpreted by the radiologist. The study was discussed with the radiologist (via fax). Laboratory Tests: UA-Culture if indicated: (STUART: 10/25/2016 04:18) ( MsgRcvd 10/25/2016 04:53) Final results Test Result Flag Units (Reference) URINE COLOR YELLOW URINE APPEARANCE SLIGHTLY HAZY URINE GLUCOSE NEGATIVE (NEGATIVE) URINE BILIRUBIN NEGATIVE (NEGATIVE) URINE KETONE TRACE (NEGATIVE) URINE SPECIFIC GRAVITY 1.025 (1.010-1.030) URINE PH 6.0 (5.0-8.0) URINE PROTEIN TRACE (NEGATIVE) URINE UROBILINOGEN 0.2 EU/dL (0.2-1.0) URINE NITRITE NEGATIVE (NEGATIVE) URINE BLOOD TRACE-INTACT (NEGATIVE) URINE LEUK ESTERASE NEGATIVE (NEGATIVE) URINE RBC 1-3 rbc/hpf (0-1) URINE WBC 0-1 wbc/hpf (0-1) URINE EPITHELIAL CELLS 3-5 EPI/hpf (0-5) URINE BACTERIA TRACE (<1+) (NONE SEEN) URINE COMMENT CULT NOT INDICATED URINE CULTURES ARE SET-UP BASED ON THE FOLLOWING CRITERIA:POSITIVE NITRITEPOSITIVE LEUKOCYTE ESTERASEGREATER THAN 10 WHITE BLOOD CELLSMODERATE (2+) OR GREATER BACTERIA CBC w Diff: (STUART: 10/25/2016 04:05) ( [facility] 10/25/2016 04:26) IP Test Result Flag Units (Reference) WHITE BLOOD COUNT 25.5 *H K/uL (4.5-11.5) CRITICAL RESULTS CALLEDCalled to PORFIRIO 10/25/16 0424Were 2 patient identifiers used? YWas the result read back? Y RED BLOOD COUNT 4.10 M/uL (4.00-5.20) HEMOGLOBIN 11.9 L gm/dL (12.0-16.0) HEMATOCRIT 36.0 % (36.0-46.0) MEAN CELL VOLUME 88 fL (80-100) MEAN CORPUSCULAR HGB 29 pg (26-34) MEAN CORPUSCULAR HGB CONC 33 g/dL (31-37) RED CELL DISTRIBUTION WIDTH 14.6 % (11.6-14.8) PLATELET COUNT 472 H K/uL (150-400) PT with INR: (STUART: 10/25/2016 04:05) ( [facility] 10/25/2016 04:27) Final results Test Result Flag Units (Reference) INR 1.0 (0.8-1.2) Low Intensity Therapy: INR 1.5-2.0 PT range 18.5-23.1Mod.Intensity Therapy: INR 2.0-3.0 PT range 23.1-31.5High Intensity Therapy: INR 2.5-3.5 PT range 27.4-35.5High Intensity Therapy 2: INR 3.0-4.0 PT range 31.5-39.3 CMP: (STUART: 10/25/2016 04:05) ( [facility] 10/25/2016 04:37) Final results Test Result Flag Units (Reference) GLUCOSE 140 H mg/dL (70-110) BUN 9 mg/dL (7-18) CREATININE 0.8 mg/dL (0.6-1.3) Estimated GFR >60 mL/min Estimated GFR- >60 mL/min Note: Persistent reduction over 3 months in eGFR<60 mL/min/1.73 m2 defines CKD. Patients with eGFR values>=60 mL/min/1.73 m2 may also have CKD if evidence ofpersistent proteinuria. Additional information may be foundat www.kidney.org. SODIUM 137 mmol/L (136-145) POTASSIUM 3.9 mmol/L (3.5-5.1) CHLORIDE 99 mmol/L (98-107) CARBON DIOXIDE 27 mmol/L (21-32) CALCIUM 8.9 mg/dL (8.5-10.1) TOTAL PROTEIN 8.6 H g/dL (6.4-8.2) ALBUMIN 3.8 g/dL (3.3-5.0) BILIRUBIN, TOTAL 0.6 mg/dL (0.0-1.0) ALKALINE PHOSPHATASE 69 U/L (46-116) AST (SGOT) 36 U/L (15-37) ALT (SGPT) 53 U/L (12-78) LIPASE 101 U/L (73-393) BETA HCG, QUANTITATIVE <1 mIU/mL REFERENCE RANGE:Adult Males: <2 mIU/mLNon- Females: <6 mIU/mL Females:Approximate Approximate hCGGestational Age Range (mIU/mL) 0-1 week 0-501-2 weeks 40-3002-3 weeks 100-68611-9 weeks 500-33252-7 months 5,000-200,0002-3 months 10,000-100,0002nd trimester 3,000-50,0003rd trimester 1,000-50,000 . PROGRESS AND PROCEDURES Course of Care: The patient is a pleasant 25-year-old female presenting for evaluation of abdominal pain. Patient recentlyelective cholecystectomy this morning. Differential diagnosis at this time includes perforated hollow viscus, biliary leak,or abscess formation. 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 Could be early signs of infection at this time. Had discussion with patient in regards to her workup here in the emergency department and potential confounding factorsgiven her recent surgery Patient was agreeable to the treatment and plan. Would be concerned at this time forthese findings however with recentinstrumentation, workupmight be equivocal. Patient's workup was remarkable for the findings above. Patient's white blood cell count is significantly elevated. Free fluid is also noted on the patient's CT scan of the abdomen and pelvis. Because of the patient'sfindings patient was reevaluated and found to have return Of pain. Because of this, patient is not a good outpatient candidate. Patient will need to be admitted to the hospital for further monitoring forpotential evolving competition postsurgically. Patient is not a good outpatient candidate. I discussion with the surgeon who will accept the patient. Discussed the patient workup, diagnosis, plan of care. All questions have been answered. Patient is agreeable to treatment plan. Prior to the patient's departure from the emergency department she is noted to be resting in bed and in no acute distress. Patient is nontoxic. Patient is stable. 4. Patient does not need ICU level of care. Critical care performed (35 minutes). Time is exclusive of separately billable procedures. Time includes: direct patient care, patient reassessment, coordination of patient care, interpretation of data (laboratory data), review of patient's medical records, medical consultation and documentation of patient care. Consult obtained from surgery. Disposition: Observation in Acute Care. (Electronically signed by Everette Kay Dr. 11/02/2016 7:22)
--- NOTE | 2016-10-25 06:54 | NUR ---
ADMITTED FROM ED PER [facility] ACCOMPANIED BY STAFF, ABLE TO TRANSFER INDEPENDENTLY TO BED.C/O 02/17 ABDOMINAL PAIN, AWAITING VERIFICATION OF MEDS. 4 TROCAR SITES DRESSINGS CDI.
[2016-10-25 07:00] VITALS: BP 128/83
--- NOTE | 2016-10-25 07:44 | NUR ---
PATIENT RESTING IN BED THIS AM. RATES HER PAIN 02/17. IV FLUIDS STARTED AND GIVEN IV DEMEROL AND TORADOL. WILL AMBULATE PATIENT EVERY HOUR TODAY. PATIENT STATES PAIN IS IN ABDOMEN AND ALSO L SHOULDER. PATIENT DID NOT AMBULATE MUCH AFTER SURGERY YESTERDAY. PAIN RELIEVING WITH MEDS. BT'S HYPOACTIVE. FLATUS -. LUNGS CLEAR. NO SOB. NO CP. NO EDEMA. NO SKIN ISSUES.
--- NOTE | 2016-10-25 09:44 | DIAGNOSTIC IMAGING REPORT ---
PROCEDURE: CT ABD/PELVIS WITH CONTRAST CLINICAL INDICATION: Severe right upper quadrant pain 20 hours status post cholecystectomy. Initial encounter. TECHNIQUE: 125 ml of Isovue 300 were injected intravenously and axial images were obtained of the entire abdomen and pelvis with sagittal and coronal reformations. COMPARISON: Abdominal ultrasound and CT abdomen/pelvis 09/20/2016 FINDINGS: ABDOMEN: Mild dependent atelectasis in both lung bases. Heart size is normal. Small postoperative pneumoperitoneum. There is also a small amount of air in the right lateral abdominal wall. Right upper quadrant subcutaneous fat and umbilical infiltration consistent with surgical ports. Cholecystectomy with a small amount of fluid around the tip of the liver.. Liver, pancreas, spleen, adrenal glands and kidneys are normal pill normal abdominal aorta. Normal appendix. PELVIS: Mild to moderate free fluid in the pelvis. 1.7 cm involuting right ovarian cyst. Normal uterus. Mild bladder wall thickening. Bones are unremarkable. IMPRESSION: 1. Cholecystectomy with minor postoperative of pneumoperitoneum. Mild to moderate free fluid the pelvis may represent postoperative pneumoperitoneum versus bile leak. Recommend nuclear medicine HIDA scan. 2. 1.7 cm involuting right ovarian cyst 3. Preliminary results submitted by Dr. Ramirez, [facility] radiology. All CT scans at this facility use dose modulation, iterative reconstruction, and/or weight-based dosing when appropriate to reduce radiation dose to as low as reasonably achievable.
[2016-10-25 10:30] VITALS: BP 132/88
--- NOTE | 2016-10-25 10:31 | NUR ---
PATIENT HAS PAIN AT ABDOMEN AND L UPPER CHEST EXTENDING TO L SHOULDER. STATES THE PAIN IS 'BURNING.' RELIEVED WITH DEMEROL, TORADOL AND AMBULATION. PATIENT IS AMBULATING EVERY HOUR.
[2016-10-25 14:23] VITALS: BP 136/92
--- NOTE | 2016-10-25 16:10 | NUR ---
PT IS A&OX3, LS CTA AND BT HYPOACTIVE. 4 TROCHAR SITES ARE ALL C/D/I. VSS. PAIN IS 6/10. NO NAUSEA CURRENTLY. AMBULATING AROUND THE UNIT Q1H. RESTING W/ CALL LIGHT IN REACH.
[2016-10-25 18:58] VITALS: BP 115/59
[2016-10-25 22:21] VITALS: BP 145/93
[2016-10-26] VITALS (11 sets, daily range): BP systolic 123–143; BP diastolic 71–87
--- NOTE | 2016-10-26 01:58 | NUR ---
Pt asleep at beginning of shift. Awoke and ambulated in hallway around an hour ago. Abdominal pain 02/17. All trochar sites cdi. Abdomen is tender to touch, especially L upper quadrant. No pain in shoulder area. No sob, nausea or vomiting. IV running at correct rate. Encouraged ambulation, sips of warm fluids and IS use. Call light with patient, uses appropriately. wctm.
--- NOTE | 2016-10-26 04:06 | NUR ---
Pt awoke with abd pain 02/17 and began sobbing. Provided 25 mg demerol and encouraged pt to ambulate in hallway. Pt is walking timidly around. wctm.
--- NOTE | 2016-10-26 04:30 | NUR ---
PATIENT WAS CALLING OUT FOR HELP DESPITE CALL LIGHT DIRECTLY ON RIGHT SIDE. SOBBING DUE TO PAIN IN UPPER RIGHT SHOULDER. PROVIDED WARM BLANKET, ENCOURAGED PROPER BREATHING AND DISTRACTING COMMUNICATION. PT IS SITTING ON SIDE OF BED PRACTICING BREATHING. WILL USE WARM BLANKET ON BACK AND FRONT OF SHOULDER. WCTM.
--- NOTE | 2016-10-26 12:27 | NUR ---
PER RADIOLOGIST, PT HAS A BILE LEAK. RADIOLOGIST TO CALL SURGEON. WILL HOLD LUNCH;NPO FOR NOW.
--- NOTE | 2016-10-26 15:56 | NUR ---
OOB AD GERALDINE AND AMBULATING THE HALLWAY. LS CLEAR AND NO S/S OF RESPIRATORY DISTRESS. IVF'S RUNNING IN THE RAC AND PATENT. C/O S/P ABD PAIN RATED 8/10. STATED, "CRAMPING PAIN ACROSS THE MIDDLE PART OF MY STOMACH." DEMEROL 25 MG IV WITH ZOFRAN GIVEN. EFFECTIVE. BT'S HYPOACTIVE X'S 4. TROCAR SITES CDI. ABD SOFTLY DISTENDED. WAITING FOR DIAGNOSTIC LAP.
--- NOTE | 2016-10-26 16:41 | DIAGNOSTIC IMAGING REPORT ---
PROCEDURE: NM HEPATOBILIARY IMAGING INDICATION: r/o biliary leak TECHNIQUE: 8 mCi of technetium-99m Choletec was injected intravenously and images were acquired over 45 minutes. Six hour delayed images were also obtained. COMPARISON: CT abdomen/pelvis 10/25/2016 FINDINGS: There is homogeneous radiotracer uptake throughout the liver. Activity is seen along the inferomedial aspect of the liver with collection at the tip of the right hepatic lobe, and eventually a large collection in the pelvis consistent with a bile leak. IMPRESSION: 1. Findings consistent with a bile leak 2. Results discussed with Dr. Yepez
--- NOTE | 2016-10-26 17:40 | NUR ---
0408-- PT IN [place] TO [facility] FROM FLOOR, HAD JUST RETURNED FROM [facility] STUDY. IV HEP LOCKED, IV LR ATTACHED. HAD VOIDED JUST PRIOR TO TX, CEFOTAN 1 ORDERED, AVAIL FOR INFUSION. PT WALKED TO OR TABLE.
--- NOTE | 2016-10-26 18:39 | NUR ---
VS STABLE THROUGHOUT PACU STAY, 1000CC IV BOLUS INFUSED, NO CO POST OPERATIVE PAIN, CLARIBEL DRAINAGE 100CC. AB LE TO COUGH AND BREATH DEEPLY, MOVING SELF ABOUT IN BED AT TIME OF TRANSFER BACK TO ROOM
--- NOTE | 2016-10-26 19:39 | NUR ---
RECEIVED PT FROM PACU SEDATE. AWAKENS EASILY AND FALLS DIRECTLY BACK TO SLEEP. TROCAR SITES TO ABD CDI. O2 FACE MASK IN PLACE @ 6L WHILE SEDATE. CLARIBEL INTACT AND DRAINING LARGE AMOUNT OF BILE COLORED DRAINAGE. 175cc SINCE RETURNING TO THE FLOOR. DR HERNANDEZ NOTIFIED AND NO NEW ORDERS RECEIVED.
--- NOTE | 2016-10-26 19:54 | NUR ---
PT A&O X4, VSS, TITRATING OXYGEN DOWN, SWITCHED TO NC, REMOVED TRUMPET. DENIES PAIN AT THIS TIME. WCTM.
--- NOTE | 2016-10-27 01:19 | OPERATIVE REPORT ---
DATE OF SURGERY: 10/26/2016 SURGEON: Jennifer Yepez III, MD ACCOUNTS PAYABLE REPRESENTATIVE: None. PREOPERATIVE DIAGNOSIS: 1. Bile leak POSTOPERATIVE DIAGNOSIS: 1. Bile leak PROCEDURES PERFORMED: 1. Diagnostic laparoscopy 2. Evacuation of bile leak 3. Reclipping of cystic duct ANESTHESIA: General endotracheal. COMPLICATIONS: There were no intraoperative or anesthetic complications. INDICATIONS: A 25-year-old female who is postoperative day now 2 from a laparoscopic cholecystectomy. At the time of the initial laparoscopic cholecystectomy, fluoroscopic intraoperative cholangiogram was normal. The patient was noted to have a very short cystic duct. The patient developed severe abdominal pain postoperatively. She was admitted to [facility]. Her initial bilirubin was normal. Her white count was 25.5. She was experiencing severe epigastric and right upper quadrant abdominal pain. She was admitted to [facility] and the following day underwent a HIDA scan. Her white count was down to 14.6 and her total bilirubin had gone from 0.6 to 1.4. Alkaline phosphatase initially 69, and today 64. HIDA scan showed bile leak with radionucleotide in the small bowel. SURGICAL FINDINGS: The patient was noted to have josef-bilious fluid around the liver and in the pelvis. Examination of the bed of the gallbladder appeared grossly normal. There was, perhaps, some mild oozing of bile from the previously placed clip on the cystic duct. This was removed and replaced. SURGICAL TECHNIQUE: The patient was brought to the operating room and placed in the dorsal supine position where she underwent general endotracheal anesthesia by the anesthesiology department. After proper anesthesia had taken effect, the patient 's abdomen was prepped using Betadine and draped in a sterile fashion. An infraumbilical incision was made through a previous incision, carried down through skin and subcutaneous tissue. Veress needle was inserted through this site into the abdominal cavity and after ascertaining its appropriate position with suction irrigation, pneumoperitoneum obtained using CO2 insufflation to approximately 14-15 mmHg pressure. Once this pressure was reached, the Veress needle was removed and replaced with a 10 mm trocar. The trocar was removed, leaving the sleeve behind, through which a laparoscopic video camera was introduced into the abdominal cavity. Under direct visualization, a separate 10 mm trocar was placed in the subxiphoid region. It entered the abdominal cavity under direct visualization. Two separate 5 mm trocars were placed in the right upper quadrant through previous incision sites. Each entered the abdominal cavity under direct visualization. The trocars were removed, leaving the sleeves behind, through which laparoscopic instrumentation was introduced in the abdominal cavity. The aforementioned findings were noted. The bilious material was suctioned out. The right upper quadrant and pelvis were irrigated copiously with warm normal saline and antibiotic solution. Examination of the gallbladder bed appeared grossly normal. The gallbladder bed and Morison pouch were filled with normal saline. We could not really ascertain a site of the bile leak. The previously placed clip on the cystic duct was, perhaps, the site. This was removed and replaced. However, it should be noted that the cystic duct stump was quite short, and any attempt at placing a clip across it in a tangential fashion would have resulted in occlusion of the common bile duct. Therefore, it was decided to place a 10 mm Kevin-Mathew drain in this area and bring it out through our inferior trocar site in the right lower abdomen, secured using 3-0 nylon, and attaching it to bulb suction. The right upper quadrant was inspected for hemostasis. Hemostasis assured. The pneumoperitoneum released. All trocars removed from the abdominal cavity. All trocar sites approximated using 4-0 subdermal Polysorb and Steri- Strips. A sterile pressure occlusive dressing was placed over the site. The patient tolerated the procedure well and was transferred to the recovery room in stable condition.
[2016-10-27 01:38] VITALS: BP 126/80
[2016-10-27 06:20] VITALS: BP 128/74
[2016-10-27 10:01] VITALS: BP 111/63
[2016-10-27 14:27] VITALS: BP 124/72; BP 127/71
[2016-10-27 18:08] VITALS: BP 120/64
--- NOTE | 2016-10-27 19:28 | NUR ---
OOB AMBULATING THE HALLWAY FREQUENTLY PER MD ORDER. HAS INTERMITTENT WAVES OF S/P CRAMPING. DEMEROL 25 MG IV EFFECTIVE FOR PAIN. NO C/O OF NAUSEA. PT STATED SHE HAS PASSED GAS. MD NOTIFIED, NEW ORDERS RECIEVED. STARTED ON CLEAR LIQUID AND WILL ADVANCE TOLERATED. CLARIBEL OUTPUT 347cc SINCE 0600 THIS AM OF LIGHT GREEN OUTPUT. DECREASED SINCE LAST NIGHT. WCTM.
[2016-10-27 22:20] VITALS: BP 124/57
--- NOTE | 2016-10-27 23:38 | NUR ---
Pt c/o 01/18 pain. Med w/25 mg Demerol. NO nausea. Passing flatus. CLARIBEL to R abd stripped & emptied for brown liquid. Taking very sm quantities of cl. liqs. IV infusing. Pt up ind.
[2016-10-28] VITALS (7 sets, daily range): BP systolic 106–121; BP diastolic 56–71
--- NOTE | 2016-10-28 12:34 | NUR ---
IV SITE INFILTRATED. TRIED [address] HERNANDEZ NOTIFIED AND ORDERED NO NEED FOR IV AT THIS TIME. PT IS EATING AND TOLERATING PO WELL. STARTED ON PO PAIN MED. WCTM.
--- NOTE | 2016-10-29 01:01 | NUR ---
PT. IS RESTING IN BED AT THIS TIME. DECLINES THE NEED FOR PAIN MEDICATION AT THIS TIME, STATES SHE IS HAVING SHOULDER PAIN BUT DECLINES THE NEED FOR PAIN MEDICATION. SLEEPING IN BETWEEN CARE. INDEPENDENT IN ROOM. CLARIBEL DRAIN TO R SIDE DRAINING GREENISH/BROWN DRAINAGE. TUBING STRIPPED. DENIES NAUSEA. PASSING GAS, BOWEL TONES PRESENT. WCTM. CALL LIGHT WITHIN REACH.
[2016-10-29 02:09] VITALS: BP 110/70
[2016-10-29 06:19] VITALS: BP 124/77
[2016-10-29] MEDS ORDERED: HYCET1 ML PO ×2 (06:38)
--- NOTE | 2016-10-29 06:40 | Provider's Discharge Care Plan ---
Problem, Goal, Plan Problem List 1. S/P DIAGNOSTIC LAPROSCOPY Goals: Improve disease control, Therapeutic intervention Instructions: Follow up as directed, Take meds as directed, CLARIBEL care instructions
--- NOTE | 2016-10-29 11:50 | NUR ---
NOTIFIED DR. HERNANDEZ OF INCREASE IN CLARIBEL OUTPUT, PER DR. HERNANDEZ THIS IS OKAY, JUST MAKE SURE PT. KEEPS GOOD RECORD OF IT. DISCUSSED THIS WITH PATIENT FOR DC INSTRUCTIONS. MELVIN
--- NOTE | 2016-10-29 12:34 | NUR ---
pt. given all dc instructions and all personal belongings including signed rx. no iv to dc, dc with kasey drain, performed return demonstration on measuring, recording, and stripping the tubing. states that she has no further questions at this time. dc'd home with sister, escorted out by child care director in wheel chair.
--- NOTE | 2016-10-31 12:57 | DISCHARGE SUMMARY ---
ADMIT DATE: 10/27/2016 DISCHARGE DATE: 10/29/2016 ADMISSION DIAGNOSIS: 1. Abdominal pain, possible bile leak DISCHARGE DIAGNOSIS: 1. Bile leak PROCEDURES PERFORMED: 1. Diagnostic laparoscopy, evacuation of intra-abdominal bile collection BRIEF HISTORY: This is a 25-year-old female who is postoperative day 2 from a laparoscopic cholecystectomy. At the time of the initial laparoscopic cholecystectomy, fluoroscopic intraoperative cholangiogram was normal. The patient was discharged home only to return the emergency room the following day complaining of abdominal pain. She was admitted to [facility]. Her initial bilirubin was normal. Her white count was 25.5. She was experiencing severe epigastric and right upper quadrant abdominal pain. The following day, a HIDA scan was obtained. Her white count was 14.6. Her total bilirubin had gone up from 0.6 to 1.4. HIDA scan showed a bile leak which radionucleotide in the small bowel. She was taken to the operating room on 10/26/2016 and underwent diagnostic laparoscopy, evacuation of bilious material in her abdominal cavity, evaluation of the portal triad, resulted in reclipping of her short cystic duct, and again no evidence of overt damage to the common bile duct or hepatic duct or leakage from the remnant of the cystic duct. This was irrigated copiously and a Kevin-Mathew drain was placed. Postoperative course was unremarkable and she was putting out a considerable amount of drainage which was bilious in color from her Kevin-Mathew. Postoperative day 2, she was passing flatus. She was started on a clear liquid diet. She was discharged home on postoperative day 3 tolerating p.o., ambulatory, afebrile with stable vital signs, passing flatus. Her Kevin-Mathew drain had put out in the previous 24 hours 438 mL of bilious serous material. White count 7.9 and total bilirubin 1.1. DISCHARGE INSTRUCTIONS/MEDICATIONS: She was discharged home to follow up with [facility] within the week. She was discharged on how to care for her Kevin- Mathew drains. She was discharged on Hycet elixir 1-2 tablespoons q.4-6 hours p.r.n. pain.
--- NOTE | 2016-11-02 07:22 | ED MED RECONCILIATION SUMMARY ---
Patient: JAY KNIGHT Medication Reconciliation Report [facility] VisitID: [id number] [address] [place] [address] 25y, F Registration Date/Time: 10/25/2016 Weight: 79.3 kg Height/Length: 62 in. BMI: 32.0 ALLERGIES: No Known Drug Allergy The patient's Home Medications are listed below: NONE. The source(s) of the original Home Medication information: Not obtained. The following Medications were given to the patient in the Emergency Department: Zofran [IVP] IVP 4 mg, administered: 10/25/2016 4:11:00 AM Dilaudid [IVP] IVP 1 mg, administered: 10/25/2016 4:10:00 AM IV NS IV Fluids bolus 1000 mL wide open, then 1000 mL/hr, administered: 10/25/2016 4:10:00 AM Dilaudid [IVP] IVP 1 mg, administered: 10/25/2016 6:10:00 AM The following Medications were prescribed to the patient: None.
--- NOTE | 2016-11-02 07:22 | ED MED RECONCILIATION SUMMARY ---
Patient: JAY KNIGHT Medication Reconciliation Report [facility] VisitID: [id number] [address] [place] [address] 25y, F Registration Date/Time: 10/25/2016 Weight: 79.3 kg Height/Length: 62 in. BMI: 32.0 ALLERGIES: No Known Drug Allergy The patient's Home Medications are listed below: NONE. The source(s) of the original Home Medication information: Not obtained. The following Medications were given to the patient in the Emergency Department: Zofran [IVP] IVP 4 mg, administered: 10/25/2016 4:11:00 AM Dilaudid [IVP] IVP 1 mg, administered: 10/25/2016 4:10:00 AM IV NS IV Fluids bolus 1000 mL wide open, then 1000 mL/hr, administered: 10/25/2016 4:10:00 AM Dilaudid [IVP] IVP 1 mg, administered: 10/25/2016 6:10:00 AM The following Medications were prescribed to the patient: None.
--- NOTE | 2016-11-02 07:22 | ED MAR SUMMARY ---
..... Medication Administration Record [facility] [address] [place] [address] Patient: JAY KNIGHT Visit ID: [id number] 25y, F Weight: 79.3 kg Height/Length: 62 in BMI: 32 ALLERGIES: No Known Drug Allergy Start 04:10 10/25/2016 Rey Burnett R.N., Stop 06:50 10/25/2016 Rey Burnett R.N. Medication Administered: IV NS (SALINE), Dose: IV Fluids over 1 hour(s), Rate: 1000 mL/hr, Bolus: 1000 mL wide open, Dispensed: 1000 mL bag, Site: #1 right AC. Medication Ordered: IV NS : initial bolus 1000 mL (1000 mL/hr), then none - for X1 (NOW). Given 04:10 10/25/2016 Rey Burnett R.N. Medication Administered: DILAUDID [IVP] (HYDROMORPHONE HCL PF), Dose: 1 mg IVP over 2 minute(s), Site: #1 right AC. Medication Ordered: Dilaudid IV 1 mg (HIGH ALERT MEDICATION, NOW). Given 04:11 10/25/2016 Rey Burnett R.N. Medication Administered: ZOFRAN [IVP] (ONDANSETRON HCL), Dose: 4 mg IVP over 2 minute(s), Site: #1 right AC. Medication Ordered: Zofran IV 4 mg (NOW). Given 06:10 10/25/2016 Lamont Carreon R.N. Medication Administered: DILAUDID [IVP] (HYDROMORPHONE HCL PF), Dose: 1 mg IVP over 1 minute(s), Site: #1 right AC. Medication Ordered: Dilaudid IV 1 mg (HIGH ALERT MEDICATION, NOW).
--- NOTE | 2016-11-02 07:22 | ED MAR SUMMARY ---
..... Medication Administration Record [facility] [address] [place] [address] Patient: JAY KNIGHT Visit ID: [id number] 25y, F Weight: 79.3 kg Height/Length: 62 in BMI: 32 ALLERGIES: No Known Drug Allergy Start 04:10 10/25/2016 Rey Burnett R.N., Stop 06:50 10/25/2016 Rey Burnett R.N. Medication Administered: IV NS (SALINE), Dose: IV Fluids over 1 hour(s), Rate: 1000 mL/hr, Bolus: 1000 mL wide open, Dispensed: 1000 mL bag, Site: #1 right AC. Medication Ordered: IV NS : initial bolus 1000 mL (1000 mL/hr), then none - for X1 (NOW). Given 04:10 10/25/2016 Rey Burnett R.N. Medication Administered: DILAUDID [IVP] (HYDROMORPHONE HCL PF), Dose: 1 mg IVP over 2 minute(s), Site: #1 right AC. Medication Ordered: Dilaudid IV 1 mg (HIGH ALERT MEDICATION, NOW). Given 04:11 10/25/2016 Rey Burnett R.N. Medication Administered: ZOFRAN [IVP] (ONDANSETRON HCL), Dose: 4 mg IVP over 2 minute(s), Site: #1 right AC. Medication Ordered: Zofran IV 4 mg (NOW). Given 06:10 10/25/2016 Lamont Carreon R.N. Medication Administered: DILAUDID [IVP] (HYDROMORPHONE HCL PF), Dose: 1 mg IVP over 1 minute(s), Site: #1 right AC. Medication Ordered: Dilaudid IV 1 mg (HIGH ALERT MEDICATION, NOW).
[2016-11-11] MEDS ORDERED: HYCET1 ML PO (12:56)
== END 2016-10-29 12:40 | disposition home or self-care (01) | DRG 909 ==
LOC: ED SRH 02:28 → TRANS SRH 06:30 → ACUTE2 SRH 06:30 → TRANS SRH 06:50 → ACUTE2 SRH 07:02
PROVIDERS: ADMIT Specialist
PROC: 0FP Hepatobiliary System and Pancreas, Removal (ICD-10-PCS; principal; 2016-10-26 16:00)
PROC: 0W9G4ZZ Drainage of Peritoneal Cavity, Percutaneous Endoscopic Approach (ICD-10-PCS; principal; 2016-10-26 16:00)
PROC: 0FL84CZ Occlusion of Cystic Duct with Extraluminal Device, Percutaneous Endoscopic Approach (ICD-10-PCS; principal; 2016-10-26 16:00)
DX: T85.638A Leakage of other specified internal prosthetic devices, implants and grafts, initial encounter (principal)
CPT/HCPCS: 29247; 29263; 50002; 60001; 70002; 80102; 80212; 80248; 80813; 82794; 82897; 83587; 83982; 84038; 84044; 90004; 90074; 90100; 90197; 91643; 92235; 92540; 94060; 95059

== ENCOUNTER 2016-11-01 08:01 | Outpatient (CLI) | payer OTHER ==
[2016-11-11] MEDS ORDERED: HYCET1 ML PO (12:56)
== END 2016-11-01 23:00 | disposition home or self-care (01) ==
LOC: LAB SRH 08:01
DX: K91.89 Other postprocedural complications and disorders of digestive system (principal)
CPT/HCPCS: 90074; 90100; 95059

== ENCOUNTER 2016-11-04 20:11 | Emergency (ER) | payer OTHER ==
--- NOTE | 2016-11-04 22:19 | ED NURSING NOTES ---
Clinical Report - Nurses [facility] [place] [address] [address] 11/04/2016 20:12 Patient: JAY KNIGHT TRIAGE Triage time 20:30. Acuity: LEVEL 4. Chief Complaint: (CLARIBEL drain and drainage in it.). --20:36 Lamont Carreon R.N. 20:30 11/04/16. BP: 130/83. HR: 105. RR: 16. O2 saturation: 100%. Temp: 97.1 F. Pain level now 11/18. --20:36 Lamont Carreon R.N. 21:13 11/04/16. BP: 118/65. HR: 93. RR: 16. O2 saturation: 100%. Temp: 98.4 F. Pain level now: 11/18. --21:14 Faith Godoy R.N. Weight: 84.8 kg. Height/Length: 62 inches. BMI: 34.2. --20:35 Lamont Carreon R.N. Medications Hydrocodone-Acetaminophen Oral 10 mg. --20:35 Lamont Carreon R.N. Medication/allergy information source: the patient. --20:36 Lamont Carreon R.N. Allergies No Known Drug Allergy. --20:35 Lamont Carreon R.N. History Arrived by private vehicle. Historian: family. Accompanied by family. Primary physician (none). This started today. ( Pt came in with a CLARIBEL drainage on the left side of the abdomen, due to a sx on of this month due to Lucho. Gallbladder was removed. Pt is having localized pain where the CLARIBEL drainage is and this pain is not new. Pt is scheduled for a 3rd surgery, but she does not know why, where or with whom. Pt last saw Dr. Yepez on Friday.). Treatment WEB DEVELOPMENT CONSULTANT: None. PAST MEDICAL HX: Immunizations: up-to-date. Denies current . SOCIAL HX: Never smoker. No alcohol use or drug use. --20:36 Lamont Carreon R.N. PROBLEMS: Biliary Colic. --20:35 Lamont Carreon R.N. ADDITIONAL SURGERIES: Cholecystectomy. --20:35 Lamont Carreon R.N. Interventions ID band on patient. To waiting room. --20:36 Lamont Carreon R.N. PHYSICAL ASSESSMENT GENERAL / NEURO / PSYCH: Alert. Oriented X 4. Appears in no acute distress. HEENT: Pupils equal, round and reactive to light. RESPIRATORY: Respirations not labored. CVS: Normal sinus rhythm noted. GI / : Abdomen soft. Abdominal tenderness diffusely. SKIN: Skin is warm and dry. --21:15 Faith Godoy R.N. NURSING PROGRESS NOTES Patient gowned. Head of bed elevated. Patient identifiers checked. Call light placed in reach. Side rails up x 1. Bed placed in lowest position. Brakes of bed on. Patient ready for evaluation- chart flagged. --21:15 Faith Godoy R.N. DISPOSITION / DISCHARGE Departure time: Nov 04 2016. Condition at departure: unchanged. The following issues were addressed: comfort issues. No learning barriers present. Discharge instructions provided and reviewed with the patient. Reviewed warnings (no driving while taking pain medication). Reviewed referral to a surgeon and primary care physician. Patient verbalized understanding. Written instructions provided in Fijian. The patient was discharged home and accompanied by family. She left the Emergency Department ambulatory and via private vehicle. Family member driving. FALL RISK ASSESSMENT: Fall risk assessment completed. No fall risk identified. --22:31 Faith Godoy R.N. 22:31 11/04/16. BP: 120/54. HR: 96. RR: 16. O2 saturation: 98%. Pain level now: 11/18. --22:32 Faith Godyo R.N. Locked/Released at 11/06/2016 7:57 by Lynn Patterson R.N.
--- NOTE | 2016-11-04 22:19 | ED NURSING NOTES ---
Clinical Report - Nurses [facility] [place] [address] 11/04/2016 20:12 Patient: JAY KNIGHT TRIAGE Triage time 20:30. Acuity: LEVEL 4. Chief Complaint: (CLARIBEL drain and drainage in it.). --20:36 Lamont Carreon R.N. 20:30 11/04/16. BP: 130/83. HR: 105. RR: 16. O2 saturation: 100%. Temp: 97.1 F. Pain level now 11/18. --20:36 Lamont Carreon R.N. 21:13 11/04/16. BP: 118/65. HR: 93. RR: 16. O2 saturation: 100%. Temp: 98.4 F. Pain level now: 11/18. --21:14 Faith Godoy R.N. Weight: 84.8 kg. Height/Length: 62 inches. BMI: 34.2. --20:35 Lamont Carreon R.N. Medications Hydrocodone-Acetaminophen Oral 10 mg. --20:35 Lamnot Carreon R.N. Medication/allergy information source: the patient. --20:36 Lamont Carreon R.N. Allergies No Known Drug Allergy. --20:35 Lamont Carreon R.N. History Arrived by private vehicle. Historian: family. Accompanied by family. Primary physician (none). This started today. ( Pt came in with a CLARIBEL drainage on the left side of the abdomen, due to a sx on of this month due to Lucho. Gallbladder was removed. Pt is having localized pain where the CLARIBEL drainage is and this pain is not new. Pt is scheduled for a 3rd surgery, but she does not know why, where or with whom. Pt last saw Dr. Yepez on Friday.). Treatment GRINDER BRAKE LINING: None. PAST MEDICAL HX: Immunizations: up-to-date. Denies current . SOCIAL HX: Never smoker. No alcohol use or drug use. --20:36 Lamont Carreon R.N. PROBLEMS: Biliary Colic. --20:35 Lamont Carreon R.N. ADDITIONAL SURGERIES: Cholecystectomy. --20:35 Lamont Carreon R.N. Interventions ID band on patient. To waiting room. --20:36 Lamont Carreon R.N. PHYSICAL ASSESSMENT GENERAL / NEURO / PSYCH: Alert. Oriented X 4. Appears in no acute distress. HEENT: Pupils equal, round and reactive to light. RESPIRATORY: Respirations not labored. CVS: Normal sinus rhythm noted. GI / : Abdomen soft. Abdominal tenderness diffusely. SKIN: Skin is warm and dry. --21:15 Faith Godoy R.N. NURSING PROGRESS NOTES Patient gowned. Head of bed elevated. Patient identifiers checked. Call light placed in reach. Side rails up x 1. Bed placed in lowest position. Brakes of bed on. Patient ready for evaluation- chart flagged. --21:15 Faith Godoy R.N. DISPOSITION / DISCHARGE Departure time: Nov 04 2016. Condition at departure: unchanged. The following issues were addressed: comfort issues. No learning barriers present. Discharge instructions provided and reviewed with the patient. Reviewed warnings (no driving while taking pain medication). Reviewed referral to a surgeon and primary care physician. Patient verbalized understanding. Written instructions provided in Brazilian. The patient was discharged home and accompanied by family. She left the Emergency Department ambulatory and via private vehicle. Family member driving. FALL RISK ASSESSMENT: Fall risk assessment completed. No fall risk identified. --22:31 Faith Godoy R.N. 22:31 11/04/16. BP: 120/54. HR: 96. RR: 16. O2 saturation: 98%. Pain level now: 11/18. --22:32 Faith Godoy R.N. Locked/Released at 11/06/2016 7:57 by Lynn Patterson R.N.
--- NOTE | 2016-11-04 22:19 | ED CLINICAL REPORT ---
Clinical Report - Physicians/Mid Levels [facility] [address] [place] [address] 11/04/2016 20:12 Patient: JAY KNIGHT Time Seen: 21:19. Arrived- By private vehicle. Historian- patient. HISTORY OF PRESENT ILLNESS Chief Complaint: blood in her CLARIBEL drain. This started today and is still present. It was abrupt in onset. (patient was seen here in the emergency room on 25 October 2016. She had undergone an elective cholecystectomy before that. During her evaluation at the visit on the it was discovered that she had a bile leak. She was subsequently readmitted and Dr. Yepez placed a CLARIBEL drain. The patient presents tonight because she thought she saw blood in the tube.). REVIEW OF SYSTEMS No chills, fever, sweats, calf pain or chest pain. No cough, difficulty breathing, pedal edema, palpitations or abdominal pain. No constipation, diarrhea, nausea, vomiting or urinary problems. All systems otherwise negative, except as recorded above. PAST HISTORY Problems: Biliary Colic. Additional Surgeries: Cholecystectomy. Medications: Hydrocodone-Acetaminophen Oral 10 mg. Allergies: No Known Drug Allergy. SOCIAL HISTORY Never smoker. No alcohol use or drug use. FAMILY HISTORY No significant family medical history. ADDITIONAL NOTES The nursing notes have been reviewed. PHYSICAL EXAM Vital Signs: 11/04/2016 20:30 BP: 130/83. HR: 105. RR: 16. O2 saturation: 100%. Temp: 97.1 F. Appearance: Alert. Eyes: Pupils equal, round and reactive to light. ENT: Pharynx normal. Neck: Normal inspection. Neck supple. CVS: Normal heart rate and rhythm. Heart sounds normal. Respiratory: No respiratory distress. Breath sounds normal. Abdomen: No visible injury. Soft and nontender. Bowel sounds normal. No organomegaly. No mass. (Right upper quadrant biliary CLARIBEL drain site is clean dry and intact. There is bilious material within the tube and CLARIBEL bulb. No heme material noted.). Back: Normal inspection. No CVA tenderness. Skin: Skin warm and dry. Normal skin color. No rash. Normal skin turgor. Extremities: Extremities exhibit normal ROM. No calf tenderness. No lower extremity edema. PROGRESS AND PROCEDURES Consult obtained. Dr. Yepez. Case discussed. Phone consult only. Will see patient in the office tomorrow. Patient/family counseled. Old medical records reviewed. Disposition: Discharged. Condition: stable. CLINICAL IMPRESSION Bile leak. INSTRUCTIONS No driving or operating machinery while taking medication. Warnings: Further evaluation is necessary. GENERAL WARNINGS: Return or contact your physician immediately if your condition worsens or changes unexpectedly, if not improving as expected, or if other problems arise. Specifically return if pain worsens. if bleeding develops. Your Current Medications: CONTINUE TAKING THE FOLLOWING MEDICATIONS: Hydrocodone-Acetaminophen Oral : 10 mg. Understanding of the discharge instructions verbalized by patient and parent. Follow-up with: Payam Yepez MD, General Surgeon, , [facility], [address] [place] [address] Follow up tomorrow. Call for an appointment. (Electronically signed by Shad Beverly MD 11/05/2016 9:47)
--- NOTE | 2016-11-04 22:19 | ED CLINICAL REPORT ---
Clinical Report - Physicians/Mid Levels [facility] [address] [place] [address] 11/04/2016 20:12 Patient: JAY KNIGHT Time Seen: 21:19. Arrived- By private vehicle. Historian- patient. HISTORY OF PRESENT ILLNESS Chief Complaint: blood in her CLARIBEL drain. This started today and is still present. It was abrupt in onset. (patient was seen here in the emergency room on 25 October 2016. She had undergone an elective cholecystectomy before that. During her evaluation at the visit on the it was discovered that she had a bile leak. She was subsequently readmitted and Dr. Yepez placed a CLARIBEL drain. The patient presents tonight because she thought she saw blood in the tube.). REVIEW OF SYSTEMS No chills, fever, sweats, calf pain or chest pain. No cough, difficulty breathing, pedal edema, palpitations or abdominal pain. No constipation, diarrhea, nausea, vomiting or urinary problems. All systems otherwise negative, except as recorded above. PAST HISTORY Problems: Biliary Colic. Additional Surgeries: Cholecystectomy. Medications: Hydrocodone-Acetaminophen Oral 10 mg. Allergies: No Known Drug Allergy. SOCIAL HISTORY Never smoker. No alcohol use or drug use. FAMILY HISTORY No significant family medical history. ADDITIONAL NOTES The nursing notes have been reviewed. PHYSICAL EXAM Vital Signs: 11/04/2016 20:30 BP: 130/83. HR: 105. RR: 16. O2 saturation: 100%. Temp: 97.1 F. Appearance: Alert. Eyes: Pupils equal, round and reactive to light. ENT: Pharynx normal. Neck: Normal inspection. Neck supple. CVS: Normal heart rate and rhythm. Heart sounds normal. Respiratory: No respiratory distress. Breath sounds normal. Abdomen: No visible injury. Soft and nontender. Bowel sounds normal. No organomegaly. No mass. (Right upper quadrant biliary CLARIBEL drain site is clean dry and intact. There is bilious material within the tube and CLARIBEL bulb. No heme material noted.). Back: Normal inspection. No CVA tenderness. Skin: Skin warm and dry. Normal skin color. No rash. Normal skin turgor. Extremities: Extremities exhibit normal ROM. No calf tenderness. No lower extremity edema. PROGRESS AND PROCEDURES Consult obtained. Dr. Yepez. Case discussed. Phone consult only. Will see patient in the office tomorrow. Patient/family counseled. Old medical records reviewed. Disposition: Discharged. Condition: stable. CLINICAL IMPRESSION Bile leak. INSTRUCTIONS No driving or operating machinery while taking medication. Warnings: Further evaluation is necessary. GENERAL WARNINGS: Return or contact your physician immediately if your condition worsens or changes unexpectedly, if not improving as expected, or if other problems arise. Specifically return if pain worsens. if bleeding develops. Your Current Medications: CONTINUE TAKING THE FOLLOWING MEDICATIONS: Hydrocodone-Acetaminophen Oral : 10 mg. Understanding of the discharge instructions verbalized by patient and parent. Follow-up with: Payam Yepez MD, General Surgeon, , [facility], [address] [place] [address] Follow up tomorrow. Call for an appointment. (Electronically signed by Shad Beverly MD 11/05/2016 9:47)
--- NOTE | 2016-11-06 07:57 | ED MAR SUMMARY ---
..... Medication Administration Record [facility] [address] [place], [place] [id number] Patient: JAY KNIGHT Visit ID: [id number] 25y, F Weight: 84.8 kg Height/Length: 62 in BMI: 34.2 ALLERGIES: No Known Drug Allergy
--- NOTE | 2016-11-06 07:57 | ED MED RECONCILIATION SUMMARY ---
Patient: AURELIA KNIGHTBasilDARYL Medication Reconciliation Report [facility] VisitID: [id number] [address] [place] [address] 25y, F Registration Date/Time: 11/04/2016 Weight: 84.8 kg Height/Length: 62 in. BMI: 34.2 ALLERGIES: No Known Drug Allergy The patient's Home Medications are listed below: CONTINUE TAKING THE FOLLOWING MEDICATIONS: Hydrocodone-Acetaminophen Oral 10 mg The source(s) of the original Home Medication information: patient The following Medications were given to the patient in the Emergency Department: None. The following Medications were prescribed to the patient: None.
--- NOTE | 2016-11-06 07:57 | ED DISCHARGE INSTRUCTIONS ---
Patient: JAY KNIGHT General Instructions [facility] VisitID: [id number] [address] [place] [address] 25y, F Registration Date/Time: 11/04/2016 Bile leak. INSTRUCTIONS No driving or operating machinery while taking medication. Warnings: Further evaluation is necessary. GENERAL WARNINGS: Return or contact your physician immediately if your condition worsens or changes unexpectedly, if not improving as expected, or if other problems arise. Specifically return if pain worsens. if bleeding develops. Your Current Medications: CONTINUE TAKING THE FOLLOWING MEDICATIONS: Hydrocodone-Acetaminophen Oral : 10 mg. Understanding of the discharge instructions verbalized by patient and parent. Follow-up with: Payam Yepez MD, General Surgeon, , [facility], [address] [place] [address] Follow up tomorrow. Call for an appointment. No driving or operating machinery while taking medication. (Electronically signed by Shad Beverly MD 11/05/2016 9:47)
--- NOTE | 2016-11-06 07:57 | ED MAR SUMMARY ---
..... Medication Administration Record [facility] [address], [place] [id number] Patient: JAY KNIGHT Visit ID: [id number] 25y, F Weight: 84.8 kg Height/Length: 62 in BMI: 34.2 ALLERGIES: No Known Drug Allergy
--- NOTE | 2016-11-06 07:57 | ED DISCHARGE INSTRUCTIONS ---
Patient: JAY KNIGHT General Instructions [facility] VisitID: [id number] [address] [place] [address] 25y, F Registration Date/Time: 11/04/2016 Bile leak. INSTRUCTIONS No driving or operating machinery while taking medication. Warnings: Further evaluation is necessary. GENERAL WARNINGS: Return or contact your physician immediately if your condition worsens or changes unexpectedly, if not improving as expected, or if other problems arise. Specifically return if pain worsens. if bleeding develops. Your Current Medications: CONTINUE TAKING THE FOLLOWING MEDICATIONS: Hydrocodone-Acetaminophen Oral : 10 mg. Understanding of the discharge instructions verbalized by patient and parent. Follow-up with: Payam Yepez MD, General Surgeon, , [facility], [address] [place] [address] Follow up tomorrow. Call for an appointment. No driving or operating machinery while taking medication. (Electronically signed by Shad Beverly MD 11/05/2016 9:47)
--- NOTE | 2016-11-06 07:57 | ED MED RECONCILIATION SUMMARY ---
Patient: AURELIA KNIGHTBasilDARYL Medication Reconciliation Report [facility] VisitID: [id number] [address] [place] [address] 25y, F Registration Date/Time: 11/04/2016 Weight: 84.8 kg Height/Length: 62 in. BMI: 34.2 ALLERGIES: No Known Drug Allergy The patient's Home Medications are listed below: CONTINUE TAKING THE FOLLOWING MEDICATIONS: Hydrocodone-Acetaminophen Oral 10 mg The source(s) of the original Home Medication information: patient The following Medications were given to the patient in the Emergency Department: None. The following Medications were prescribed to the patient: None.
[2016-11-11] MEDS ORDERED: HYCET1 ML PO ×2 (12:56)
== END 2016-11-04 21:32 | disposition home or self-care (01) ==
LOC: ED SRH 20:11
DX: K91.89 Other postprocedural complications and disorders of digestive system (principal)

== ENCOUNTER 2016-11-05 08:16 | Outpatient (CLI) | payer OTHER ==
[2016-11-11] MEDS ORDERED: HYCET1 ML PO ×2 (12:56)
== END 2016-11-05 23:00 ==
LOC: LAB SRH 08:16
DX: R10.9 Unspecified abdominal pain (principal); Z90.49 Acquired absence of other specified parts of digestive tract
CPT/HCPCS: 90074; 90100; 95059

== ENCOUNTER 2016-11-13 18:15 | Outpatient (CLI) | payer OTHER | END 2016-11-13 23:00 | LOC: LAB SRH 18:15 | DX: R10.9 Unspecified abdominal pain (principal) | CPT/HCPCS: 90074; 90100; 92235; 92530; 95059 ==

== ENCOUNTER 2016-11-21 10:22 | Outpatient (CLI) | payer OTHER ==
--- NOTE | 2016-11-21 14:39 | DIAGNOSTIC IMAGING REPORT ---
PROCEDURE: NM HEPATOBILIARY IMAGING INDICATION: Status post cholecystectomy with biliary leak. Recent placement of surgical drain followed by biliary stent. Persistent drain output. TECHNIQUE: 7 mCi of technetium-99m Choletec was injected intravenously and images were acquired over a one hour time interval. COMPARISON: Comparison is made to nuclear medicine biliary scan and 10/26/2016. FINDINGS: There is prompt liver uptake. Proximal common duct is visualized at 8 minutes with isotope in the drainage tube at 10 minutes. There is no isotope in the lower common duct, and there is only flow of isotope into the gallbladder fossa and surgical drain. IMPRESSION: 1. There is visualization of the proximal common bile duct (at the level of the proximal stent) with biliary flow only into the surgical drain. Overall appearance suggests obstruction of the biliary stent. 2. Findings discussed with Dr. Yepez.
--- NOTE | 2016-11-21 14:41 | DIAGNOSTIC IMAGING REPORT ---
PROCEDURE: CT ABDOMEN WITHOUT CONTRAST CLINICAL INDICATION: Follow-up biliary leak. Abdominal drain. Biliary stent. TECHNIQUE: Noncontrast axial images were obtained through the abdomen with sagittal and coronal reformations. COMPARISON: Comparison is made to nuclear medicine biliary scan earlier today (11/21/2016), prior nuclear medicine biliary scan (10/26/2016), and CT abdomen and pelvis on 10/25/2016 FINDINGS: Status post cholecystectomy. There is interim placement of a surgical drain in the gallbladder fossa and noris hepatis, which extends caudally and exits through the right lower abdominal wall. There is interim placement of a biliary stent which appears to be in satisfactory position, with the caudal stent appearing to protrude into the duodenum (although could be at the ampulla). Common duct is of normal size, and there is no evidence of intrahepatic ductal dilation. There is no of the pancreatic ductal dilation. Liver is normal. There is a [id number] amount of ingested material in the stomach. Spleen, pancreas, kidneys, and aorta are normal. IMPRESSION: 1. Status post cholecystectomy with surgical drain in the gallbladder fossa. 2. Status post biliary stent which appears to be in satisfactory position with caudal stent in the duodenum (although could be located in the ampulla). 3. Moderate to large amount of ingested material in the stomach (incidental). 4. Findings discussed with Dr. Yepez. All CT scans at this facility use dose modulation, iterative reconstruction, and/or weight-based dosing when appropriate to reduce radiation dose to as low as reasonably achievable.
== END 2016-11-21 23:00 ==
LOC: NM SRH 10:22
DX: K91.81 Other intraoperative complications of digestive system (principal); Z90.49 Acquired absence of other specified parts of digestive tract

== ENCOUNTER 2016-12-03 10:40 | Outpatient (CLI) | payer OTHER ==
--- NOTE | 2016-12-05 11:57 | DIAGNOSTIC IMAGING REPORT ---
PROCEDURE: MR ABDOMEN WITHOUT CONTRAST INDICATION: *MRCP*PERCUTANEOUS BILE DRAINAGE TECHNIQUE: Multiplanar multi-sequence MR imaging of the abdomen. The patient discontinued the examination before MRCP images could be obtained. COMPARISON: CT abdomen 11/21/2016. FINDINGS: The biliary stent is not clearly identified on MRI. There appears to be mild narrowing of the common hepatic duct proximally but common bile duct is patent and measures 6 mm. Cholecystectomy. Right upper quadrant drain in place with 8 x 2 cm fluid collection in the right upper quadrants abdominal wall. Spleen, pancreas, adrenal glands, kidneys and abdominal aorta are unremarkable. Nonspecific bowel gas pattern. Bones are unremarkable. IMPRESSION: 1. Incomplete exam (patient discontinued examination before MRCP images could be obtained and patient will be contacted for additional images) 2. Cholecystectomy 3. Right upper quadrant surgical drain with 8 x 2 cm fluid collection in the right upper quadrant abdominal wall 4. Biliary stent not visualized on MRI but there appears to be mild narrowing of the proximal common hepatic duct with normal CBD. Recommend MRCP images to complete the examination. ERCP is also recommended for this patient 5. Results discussed with Dr. Yepez
== END 2016-12-03 23:00 ==
LOC: MRI SRH 10:40
DX: K91.81 Other intraoperative complications of digestive system (principal); Z90.49 Acquired absence of other specified parts of digestive tract

== ENCOUNTER 2016-12-13 08:34 | Outpatient (CLI) | payer OTHER ==
--- NOTE | 2016-12-13 10:19 | DIAGNOSTIC IMAGING REPORT ---
PROCEDURE: NM HEPATOBILIARY IMAGING INDICATION: POST OP BILE LEAK, S/P ERCP WITH STENT REPLACEMENT TECHNIQUE: 8 mCi of technetium-99m Choletec was injected intravenously and images were acquired over a one hour time interval. COMPARISON: MRI abdomen 12/03/2016, CT abdomen/pelvis 11/21/2016 and hepatobiliary scan 11/21/2016. FINDINGS: There is homogeneous radiotracer uptake throughout the liver. Small bowel activity noted at 11 minutes. Nonvisualization of the gallbladder consistent with a cholecystectomy. No evidence of a bile leak. IMPRESSION: 1. Patent common bile duct 2. Cholecystectomy with no evidence of a bile leak 3. Results discussed with Dr. Yepez
== END 2016-12-13 23:00 ==
LOC: NM SRH 08:34
DX: R10.13 Epigastric pain (principal); K80.20 Calculus of gallbladder without cholecystitis without obstruction; Z90.49 Acquired absence of other specified parts of digestive tract
CPT/HCPCS: 90074; 90100; 95059